=== PATIENT | female | born 1935 | race Caucasian/White ===

== ENCOUNTER → 2016-11-17 | Outpatient (CLI) | payer OTHER, BC ==
[~2016-11-17] MED LIST: ACET-1138 PO; DOXY25TA7 PO; MULT-506 PO; SNK PO; TRAM-10 PO; XRL10 PO
--- NOTE | 2016-11-17 16:05 | MAMMOGRAPHY REPORT ---
BILATERAL DIGITAL SCREENING MAMMOGRAM WITH CAD: 11/17/2016 CLINICAL HISTORY: Routine screening. Patient has no complaints. TECHNIQUE: Bilateral CC and MLO views were obtained. Current study was also evaluated with a Comput er Aided Detection (CAD) system. COMPARISON: Comparison is made to exams dated: 12/06/2014 mammogram, 05/22/2014 mammogram, 04/03/2013 mammogram, 03/31/2012 mammogram, 02/20/2011 mammogram, and 02/14/2010 mammogram - [facility]. BREAST COMPOSITION: The tissue of both breasts is heterogeneously dense, which may obscure small ma sses. FINDINGS: There is a new visualized 4 mm focal asymmetry with associated clustered microcalcificati on in the far posterior upper inner left breast, for which additional spot magnification views and p ossibly ultrasound are recommended. There are other clusters of microcalcifications most numerous i n the lateral right breast and 12:00 left breast, for which additional spot magnification views can be obtained at the time of diagnostic workup in the left breast, to ensure stability. No other suspicious mass, focal area of architectural distortion or developing asymmetry is seen taqueria aterally. IMPRESSION: ACR BI-RADS CATEGORY 0: INCOMPLETE EVALUATION: NEED ADDITIONAL IMAGING EVALUATION The 4 mm focal asymmetry with associated clustered microcalcification in the upper inner posterior l eft breast, and bilateral clusters of microcalcifications need additional imaging evaluation. The patient will be called to schedule an appointment. Approximately 10% of breast cancers are not detected with mammography. A negative mammographic repor t should not delay biopsy if a clinically suggestive mass is present. Pam Truong M.D. ay/:11/17/2016 13:34:22 Outbound Call Center Representative: Malia SOTO(R)(M), [facility] letter sent: Addl Imaging 0 BI-RADS Code: ACR BI-RADS Category 0: Incomplete Evaluation: Need Additional Imaging Evaluation
== END | disposition home or self-care (01) ==
LOC: C.MAMM 09:01
PROVIDERS: ATTEND Family Medicine
DX: Z12.31 Encounter for screening mammogram for malignant neoplasm of breast (principal); N64.89 Other specified disorders of breast; R92.0 Mammographic microcalcification found on diagnostic imaging of breast

== ENCOUNTER → 2016-11-25 | Outpatient (CLI) | payer OTHER, BC ==
--- NOTE | 2016-11-25 16:45 | MAMMOGRAPHY REPORT ---
BILATERAL DIGITAL DIAGNOSTIC MAMMOGRAM AND TARGETED LEFT ULTRASOUND: 11/25/2016 CLINICAL HISTORY: Bilateral Calcifications. TECHNIQUE: Spot magnification bilateral cc and ML views were obtained. COMPARISON: Comparison is made to exams dated: 11/17/2016 mammogram, 12/06/2014 mammogram, 06/06/2014 mammogram, 05/22/2014 mammogram, 04/03/2013 mammogram, and 03/31/2012 mammogram - [facility]. BREAST COMPOSITION: The tissue of both breasts is heterogeneously dense, which may obscure small ma sses. FINDINGS: Spot magnification views of the left breast demonstrate grouped punctate and amorphous ca lcifications within the left upper inner quadrant which are stable on spot magnification views datin g back to the May 2014 exam and are likely stable on spot magnification views dating back to 31 03. More posteriorly in the left upper inner quadrant is a nodular 5 mm focal asymmetry with associ ated internal calcifications which appear increased compared to prior exams. Spot magnification views of the right breast demonstrate multiple groups of similar-appearing puncta te and amorphous calcifications in the right upper outer quadrant. The calcifications are likely st able compared to the May 2014 exam, however, it is difficult to make an accurate comparison bet ween the exams due to differences in mammographic technique (currently using [employer] equipment, prev iously using [employer] equipment). Targeted ultrasound was performed of the left upper inner quadrant in the region of the nodular asym metry with associated calcifications. No clear sonographic correlate for the asymmetry is seen. No suspicious masses were seen on ultrasound. IMPRESSION: ACR BI-RADS CATEGORY 4: SUSPICIOUS, TARGETED ULTRASOUND ACR BI-RADS CATEGORY 4: SUSPICI OUS 1. Small 5 mm nodular asymmetry with associated increasing calcifications in the left upper inner q uadrant posteriorly, without a sonographic correlate evident. The finding is indeterminate and ster eotactic biopsy is recommended for further evaluation. 2. Grouped calcifications in the left upper inner quadrant more anteriorly are stable dating back t o at least the May 2014 exam spot magnification views and are considered benign given long-term stability. 3. Multiple groups of calcifications in the right upper outer quadrant are likely stable compared to the 2013 exam although it is difficult to confirm stability given differences in mammographic techn ique. Pending benign pathology of the left breast finding, recommend follow-up diagnostic mammogram s in 6 months of the right breast to confirm stability on spot magnification views. A phone call was made to the physician's office to confirm faxed results were received. The patient has been verbally notified of the results. She tentatively scheduled the biopsy before leaving the department. Approximately 10% of breast cancers are not detected with mammography. A negative mammographic repor t should not delay biopsy if a clinically suggestive mass is present. Brianne Lemons M.D. ah/:11/25/2016 15:19:51 Recycling Technician: Dayana SOTO(Carmelina)(Jenniffer), [facility] letter sent: Abnormal 4/5 BI-RADS Code: ACR BI-RADS Category 4: Suspicious Ultrasound BI-RADS: ACR BI-RADS Category 4: Suspic ious
== END | disposition home or self-care (01) ==
LOC: C.MAMM 12:44
PROVIDERS: ATTEND Family Medicine
DX: R92.0 Mammographic microcalcification found on diagnostic imaging of breast (principal); N64.89 Other specified disorders of breast

== ENCOUNTER → 2017-02-16 | Outpatient (CLI) | payer OTHER, BC ==
[~2017-02-16] MED LIST changes: -TRAM-10 PO
--- NOTE | 2017-02-16 13:39 | Discharge Instructions ---
Discharge Instructions Procedure Procedure Date: Feb 16, 2017. Reason for visit: Left Calcifications. Discharge Discharge Date: Feb 16, 2017. Discharge Diagnosis: post left breast stereotactic guided biopsy Instructions Activity Recommendations: Additional Limitations (see below) Return to School/Work: no limitations Recommended Home Diet: No Limitations Provider Instructions: ACTIVITY RECOMMENDATIONS: * No lifting, pushing, pulling or exercising the affected side for three days. RETURN TO SCHOOL/WORK: * You may return to work/school after the procedure, but do not perform any strenuous activities for 24 to 48 hours. MEDICATIONS: * Tylenol (two 325 mg) every four to six hours if needed for mild pain (if not allergic to Tylenol). DIET: * Resume previous diet. SPECIAL CARE INSTRUCTIONS: * Keep biopsy site dry for 24 hours. May shower after 24 hours, but do not soak (bathe) incision. * May remove Tegaderm (plastic patch) tomorrow AFTER showering. * Leave the steri-strips on for one week. Allow the steri-strips to fall off by themselves. If not off after one week, you may remove them. You may place a Bandaid crosswise over the strips, if desired. * Apply ice 10 minutes on and 10 minutes off as needed. * Wear a bra at bedtime to sleep more comfortably for 2-3 days. * Your referring physician should have the results after approximately 5 to 7 business days. * Call for unusual bleeding, fever, drainage, etc or if you have any questions call [phone] during normal business hours or after hours call Dr Truong, . FOLLOW UP VISIT: Follow-up with Referring Physician as scheduled. Allergies Coded Allergies: Codeine (Verified Adverse Reaction, Unknown, NAUSEA, 06/27/16) Mel Prado Recommendations: Call your doctor if: * Temperature above 101 degrees * Pain not relieved by pain medicine ordered * There is increased drainage or redness from any incision * You have any unanswered questions or concerns. Your Doctors Instructions noted above were prepared by provider Pam Truong. Patient Signature Section: Patient Instructions Signature Page Iqra Prieto Patient (or Guardian) Signature/Date: I have read and understand the instructions given to me by my caregivers. Caregiver/RN/Doctor Signature/Date: The above-named patient and/or guardian has received patient instructions on this date. + Original Patient Signature Page (only) stays with chart. Please make copy for patient.
--- NOTE | 2017-02-17 07:43 | MAMMOGRAPHY REPORT ---
THIS REPORT HAS BEEN AMENDED. STEREOTACTIC GUIDED BIOPSY LEFT BREAST: 02/16/2017 CLINICAL HISTORY: 5 mm nodular asymmetry with associated clustered microcalcification in the upper in ner far posterior left breast. Patient presents for stereotactic guided biopsy. COMPARISON: Comparison is made to exams dated: 11/25/2016 mammogram, 11/17/2016 mammogram, 12/06/2014 ma mmogram, and 06/06/2014 mammogram - [facility]. PATIENT CONSENT: After explaining the risks, benefits and alternatives of the procedure to the patien t, informed consent was obtained both verbally and in writing. Specific risks include: Bleeding, inf ection, puncture of adjacent structure, pain, nontarget biopsy, sampling error, metal allergy and med ication reaction. PROCEDURE DESCRIPTION: A time-out was performed and the left breast was confirmed as the site of biop sy. The patient was placed prone on the stereotactic biopsy table and the breast was placed in medial lateral compression. A ux researcher image was obtained that demonstrated the clustered microcalcifications and associated 5 mm nodular asymmetry in question. They are amenable to sterotactic biopsy. Then +15 and -15 stereo pair images were obtained. The calcifications were targeted utilizing the coordinat es obtained by the computer. The skin was prepped with Betadine. 1% Lidocaine with and without epini pherine was administered as local anesthesia. A small skin incision was made. Through the incision, the needle was inserted to the depth determined by the computer. 7 samples were obtained using a [employer] 9-gauge vacuum-assisted biopsy device. The specimen radiograph demonstrated several represent ative microcalcifications within multiple samples, therefore, a metallic marker was placed at the bio psy site. There was no immediate complication. Hemostasis was achieved after several minutes of manua l compression. The samples were sent to pathology in an appropriately labeled container. Postprocedure CC and ML views of the left breast were obtained. There is a new dumbbell-shaped metal lic biopsy marker and no significant hematoma in the upper inner posterior left breast, at the site o f the biopsied 5 mm nodular asymmetry with associated clustered microcalcification. Pending benign pathology results, follow-up diagnostic mammograms and repeat spot magnification views of the left breast are recommended in 6 months. COMPARISON: Comparison is made to exams dated: 11/25/2016 mammogram, 11/17/2016 mammogram, 12/06/2014 ma mmogram, and 06/06/2014 mammogram - [facility]. A stereotactic guided biopsy was performed for the abnormality located in the left breast at 10 o'batool ck posterior depth. The skin was prepped in the usual manner. A biopsy needle was placed adjacent t o the abnormality under computer guidance and confirmatory stereotactic mammography images were obtai floyd to document needle placement. Once the needle was documented to be in the correct location, a sp ecimen was obtained using an automated biopsy gun. The specimen was sent to the laboratory for patho logical analysis. IMPRESSION: STEREOTACTIC GUIDED BIOPSY Status post left breast stereotactic guided biopsy of a 5 mm nodular asymmetry with associated cluste red microcalcification in the upper inner posterior left breast, with biopsy marker placed at the sit e. Pending benign pathology results, follow-up left diagnostic mammograms and repeat spot magnification views are recommended in 6 months, to ensure stability of other clustered and grouped microcalcificat ions present in the left breast. The patient will receive notification of the biopsy results from her referring physician. Pam Truong M.D. ay/:02/16/2017 14:01:42 Roll Bucker: Yeny MELENDREZ)(M), [facility] AMENDMENT: 02/24/2017 Pam Truong M.D. 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 Pathology results are concordant with the imaging appearance. A six-tripp h follow-up left diagnostic mammogram including spot magnification views is recommended to ensure sta bility of other clustered calcifications.
--- NOTE | 2017-02-17 08:52 | MAMMOGRAPHY REPORT ---
UNILATERAL LEFT DIGITAL DIAGNOSTIC MAMMOGRAM: 02/16/2017 CLINICAL HISTORY: Status post left breast stereotactic guided biopsy of a cluster of microcalcificati ons in the upper inner posterior breast. Please refer to the report from left breast stereotactic biopsy performed at the same time for full d etail. IMPRESSION: POST PROCEDURE IMAGING FOR MARKER PLACEMENT Please refer to the report from left breast stereotactic biopsy performed at the same time for full d etail. Approximately 10% of breast cancers are not detected with mammography. A negative mammographic report should not delay biopsy if a clinically suggestive mass is present. Pam Truong M.D. ay/:02/16/2017 13:40:33 Conference Interpreter: Yeny SOTO(Carmelina)(M), [facility] BI-RADS Code: Post Procedure Imaging For Marker Placement
== END | disposition home or self-care (01) ==
LOC: C.MAMM 12:47
PROVIDERS: ATTEND Family Medicine
DX: R92.0 Mammographic microcalcification found on diagnostic imaging of breast (principal); D24.2 Benign neoplasm of left breast

== ENCOUNTER → 2017-10-14 | Outpatient (CLI) | payer OTHER, BC ==
[~2017-10-14] MED LIST changes: -DOXY25TA7 PO; +DOXY25TA8 PO
--- NOTE | 2017-10-14 14:44 | MAMMOGRAPHY REPORT ---
BILATERAL DIGITAL DIAGNOSTIC MAMMOGRAM TOMOSYNTHESIS WITH CAD: 10/14/2017 CLINICAL HISTORY: History of stereotactic biopsy of left breast calcifications February 2017 which yiel ded a benign sclerotic fibroadenoma. The patient presents for short interval follow-up of other bila teral breast calcifications. TECHNIQUE: Breast tomosynthesis in addition to standard 2D mammography was performed. Current study was also evaluated with a Computer Aided Detection (CAD) system. Bilateral CC and MLO 2D and tomosyn thesis images and spot magnification bilateral CC and ML views were obtained. COMPARISON: Comparison is made to exams dated: 02/16/2017 stereotactic biopsy, 02/16/2017 mammogram, 11/09 ultrasound, 11/25/2016 mammogram, 11/17/2016 mammogram, and 12/06/2014 mammogram - [facility]. BREAST COMPOSITION: The tissue of both breasts is heterogeneously dense, which may obscure small mas ses. FINDINGS: Spot magnification views of the left breast again demonstrate grouped punctate and amorphou s calcifications within the left upper inner quadrant which are stable on spot magnification views da ting back to at least the 2013 exam and are considered benign given long-term stability. A biopsy cl ip is seen within the left upper inner quadrant posteriorly from prior benign stereotactic biopsy. Spot magnification views of the right breast again demonstrate numerous groups of similar appearing p unctate and amorphous calcifications throughout the right upper outer quadrant. The calcifications a re stable on spot magnification views dated November 2016. Additionally, the calcifications appear simila r to the biopsied calcifications in the left breast which yielded a benign fibroadenoma. The calcifi cations are probably benign and likely represent degenerating fibroadenomas. The remainder of both breasts are stable compared to prior exams, without suspicious masses, calcific ations, or areas of architectural distortion noted. Bilateral asymmetries are stable. Oval circumsc ribed 3.1 cm benign-appearing mass in the left lower inner quadrant is also stable. IMPRESSION: ACR-BI-RADS CATEGORY 3: PROBABLY BENIGN 1. Grouped punctate and amorphous calcifications in the left upper inner quadrant are stable dating back to the May 2014 exam and are considered benign given long-term stability. 2. Multiple groups of punctate and amorphous calcifications in the right upper outer quadrant are st able dating back to at least the November 2016 exam, and appear similar to the recently biopsied calcifica tions within the left breast which yielded benign pathology. 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 Recommend bilateral diagnostic tomosynthesis mammog brianne in 12 months, to reevaluate the right breast calcifications and for routine mammography of the l eft breast. The patient has been verbally notified of the results. Approximately 10% of breast cancers are not detected with mammography. A negative mammographic report should not delay biopsy if a clinically suggestive mass is present. Brianne Lemons M.D. ah/:10/14/2017 11:12:28 Glue Specialty Supervisor: Dayana MELENDREZ)(Jenniffer), [facility] letter sent: Follow Up Recommended 3 BI-RADS Code: ACR-BI-RADS Category 3: Probably Benign
== END | disposition home or self-care (01) ==
LOC: C.MAMM 10:23
PROVIDERS: ATTEND Family Medicine
DX: R92.0 Mammographic microcalcification found on diagnostic imaging of breast (principal)

== ENCOUNTER 2019-07-06 16:24 | Inpatient (IN) ==
[2019-07-06 17:20] LABS: Basophils # (auto) 0.11 K/uL (0-0.2); Basophils % (auto) 1.2 %; Eosinophils # (auto) 1.23 K/uL (0-0.5); Eosinophils % (auto) 13.4 %; Hematocrit (blood only) 41.2 % (37-47); Hemoglobin 13.9 g/dL (12.0-16.0); Immature Granulocytes # (auto) 0.02 K/uL (0.00-0.02); Immature Granulocytes % (auto) 0.2 %; Lymphocytes # (auto) 2.92 K/uL (1.2-3.4); Lymphocytes % (auto) 31.8 %; Mean Corpuscular Hemoglobin 32.6 pg (25-34); Mean Corpuscular Hgb Conc 33.7 g/dL (32-36); Mean Corpuscular Volume 96.7 fL (80-100); Mean Platelet Volume 8.6 fL (7.4-10.4); Monocytes # (auto) 0.75 K/uL (0.11-0.59); Monocytes % (auto) 8.2 %; Neutrophils # (auto) 4.14 K/uL (1.4-6.5); Neutrophils % (auto) 45.2 %; Platelet Count 360 K/uL (130-400); RDW Coefficient of Variation 13.1 % (11.5-14.5); RDW Standard Deviation 45.9 fL (36.4-46.3); Red Blood Count 4.26 M/uL (4.2-5.4); White Blood Count 9.17 K/uL (4.8-10.8)
--- NOTE | 2019-07-06 17:34 | XRay Report ---
SINGLE VIEW CHEST CLINICAL HISTORY: Dyspnea. FINDINGS: An AP, portable, upright chest radiograph is compared to study dated 06/27/2016. The cardio mediastinal silhouette is unremarkable. There is mild bibasilar scarring/atelectasis. The lungs and p leural spaces are otherwise clear. No pneumothorax is seen. The skeletal structures are osteopenic. T he bony thorax is grossly intact. IMPRESSION: No active disease in the chest. ACT 112: Negative or not required by law. Electronically signed by: Michel Cohen M.D. 07/06/2019 5:33 PM
[2019-07-06 17:38] LABS: Partial Thromboplastin Time 25.9 Seconds (21.0-31.0)
[2019-07-06 17:43] LABS: Alanine Aminotransferase 21 U/L (12-78); Albumin Level 3.6 gm/dl (3.4-5.0); Aspartate Aminotransferase 14 U/L (15-37); BUN Creatinine Ratio 14.6 (10-20); Blood Urea Nitrogen 11 mg/dl (7-18); Calcium 8.6 mg/dl (8.5-10.1); Carbon Dioxide 26 mmol/L (21-32); Chloride 105 mmol/L (98-107); Creatinine Clr Calc Pharmacy 50.6 ml/min; Est GFR (African American) 87.4; Est GFR (Non-African American) 75.4; Glucose 92 mg/dl (70-99); Potassium 3.9 mmol/L (3.5-5.1); Sodium 136 mmol/L (136-145)
[2019-07-06] MEDS ORDERED: methylPREDNISolone 125 MG/2 ML VIAL IV STA (17:46)
[2019-07-06] MEDS ORDERED: ALBUT/IPRATROP 3MG/0.5MG NEB 3 ML VIAL NEB STA ×2 (17:46→18:34)
[2019-07-06 17:47] LABS: Alkaline Phosphatase 86 U/L (45-117); Bilirubin,Total 0.3 mg/dl (0.2-1); Globulin 3.5 gm/dl (2.5-4.0); Total Protein 7.1 gm/dl (6.4-8.2); Troponin I < 0.015 ng/ml (0-0.045)
--- NOTE | 2019-07-06 21:13 | Emergency Department Note ---
Entered by Percy Rivera acting as a scribe for Quintin Acosta MD ED Provider Note CHIEF COMPLAINT: shortness of breath HISTORY OF PRESENT ILLNESS: The patient is a 84 year old F who presents to the Emergency Room with complaints of worsening shortness of breath that started 1 month ago. The patient states that 1 month ago, when her shortness of breath first started, she went to see her PCP, Dr. Ryann Banuelos. She notes that her PCP did a chest CT and prescribed her an inhaler, z-pack, and steroids. She adds that she has been taking all of her medications except for her steroid medication. She notes that her is a former ER doctor and did not want her to take her steroid medications. She states that she is currently experiencing coughing, congestion, and dyspnea. She adds that her coughing is producing a yellow mucous. She notes that she also has back pain, but she adds that it is due to working around her house. She denies being on oxygen at home. She states that she is a former smoker. She adds that she has a history of a broken hip, 3 years ago. She denies any recent long travel or being around anyone sick. She also denies a history of asthma and COPD. Pt denies LOC, headache, fevers, chills, diaphoresis, visual changes, neck pain, chest pain, nausea, vomiting, leg swelling, abdominal pain, melena, hematochezia, urinary symptoms, numbness, weakness, lymphadenopathy, rash, or other complaints. REVIEW OF SYSTEMS: See HPI for pertinent positives and negatives. A total of ten systems were reviewed and were otherwise negative. PMHx/PSHx: Dyslipidemia, osteoporosis, esophageal reflux SOCIAL HISTORY: Patient lives at home. . PHYSICAL EXAM: GENERAL: Awake, alert, well-appearing, in no distress HENT: Normocephalic, atraumatic. Oropharynx unremarkable. EYES: PERRL. Normal conjunctiva. Sclera non-icteric. NECK: Inspection normal. Non-tender. Supple. No nuchal rigidity. FROM. No masses. RESPIRATORY: Coarse breath sounds. Wheezing. No rales. Normal respiratory effort. CARDIAC: Normal rate. Normal rhythm. No murmurs. No rubs. Extremities warm and well perfused. Pulses equal. No JVD. GI: Soft, non-distended. No tenderness to palpation. No rebound or guarding. No masses. RECTAL: Deferred. MUSCULOSKELETAL: Atraumatic. Chest examination reveals no tenderness. The back is symmetrical on inspection without obvious abnormality. There is no CVA te nderness to palpation. No joint edema. LOWER EXTREMITIES: Calves are equal size bilaterally and non-tender. No edema. No discoloration. NEURO: Normal sensorium. No sensory or motor deficits noted. SKIN: No rash or jaundice noted. EMERGENCY DEPARTMENT COURSE: 1737: The patient was evaluated in room A12B, and a complete history and phy sical examination were performed. 2035: I reviewed the patient's case with Dr. Tovar, [facility] Hospitalist. He will evaluate the patient for further management. MEDICAL DECISION MAKING: Triage Nursing notes reviewed and agree them. Additional history obtained from the family. The patient's history was concerning for shortness of breath. Differential diagnosis: Etiologies such as pneumonia, COPD, reactive airway disease, CHF, cardiac ischemia, pulmonary embolism, pneumothorax, musculoskeletal, infections, gastrointestinal, as well as others were entertained. Physical examination: As above. The patient was wheezing. ER treatment provided: DuoNeb x2 Solu-Medrol Supplemental oxygen On reassessment the patient felt better. Diagnostic interpretation by me: The electrocardiogram was negative for pathologic change. The labs revealed an unremarkable CBC and chemistry panel Imaging studies: Chest x-ray negative for acute process. The patient has reactive airways and is wheezing. She has hypoxia from this. She needs further management in the hospital. Consultation: A consultation was placed with the hospitalist. The case was discussed and diagnostics were reviewed. The patient was evaluated in the ER for further treatment. IMPRESSION: hypoxia, wheezing, non-productive cough PLAN: Admitted as inpatient. The scribe's documentation has been prepared under my direction and personally reviewed by me in its entirety. I confirm that the note above accurately reflects all work, treatment, procedures, and medical decision making performed by me. Impression & Plan Hypoxia, Wheezing, Non-productive cough Past Med/Surg History Medical History (Updated 07/06/19 @ 21:07 by Percy Rivera) Dyslipidemia H/O esophageal reflux Osteoporosis Social History Preferred Language: [employer] Required: No Beliefs That Will Affect Care: None Current Living Situation: Spouse Other Information That Helps Us Care for You: No Feels Safe at Home: No Is there a partner from a previous relationship who is making you feel unsafe now?: No Any Concerns about Your Family Situation: No Would You Like to Speak to Someone About Your Situation: No Safety Concerns: Feels Safe At This Time Smoking Status: Former smoker Tobacco Type: cigarettes ; Do You Dip or Chew Tobacco: No ; Second Hand Exposure: No ; Tobacco Cessation Education Requested by Patient: No Hx Alcohol Use: Yes Alcohol type: wine Hx Substance Use: No Results & Data Vital Signs Vital Signs - 24 hr 07/06/19 16:24 07/06/19 16:52 07/06/19 17:09 Temperature 36.6 C Temperature Source Oral Pulse Rate 80 61 Pulse Rate [Apical] Pulse Rhythm [Apical] Pulse Strength [Apical] Respiratory Rate 20 Respiratory Effort / Characteristics Non-Labored Spontaneous Non-Labored Spontaneous Respiratory Depth Normal Normal Respiratory Pattern Regular Regular Blood Pressure 113/65 Blood Pressure [Right Arm] Blood Pressure Mean 81 Blood Pressure Mean [Right Arm] Blood Pressure Position [Right Arm] Pulse Oximetry 86 L 85 L 93 Oxygen Delivery Method Room Air Room Air Nasal Cannula Oxygen Flow Rate 2 2 Sepsis Recent Fever Within 48 Hours No Sepsis Action Taken by Nursing No Action Required Oxygen Flow Rate - Titration 2 Pulse Oximetry Post Tiitration 92 07/06/19 18:12 07/06/19 18:24 07/06/19 18:50 Temperature Temperature Source Pulse Rate Pulse Rate [Apical] 64 68 69 Pulse Rhythm [Apical] Regular Pulse Strength [Apical] Normal Respiratory Rate 16 24 20 Respiratory Effort / Characteristics Non-Labored Spontaneous Non-Labored Spontaneous Spontaneous Respiratory Depth Normal Respiratory Pattern Blood Pressure Blood Pressure [Right Arm] 128/58 L Blood Pressure Mean Blood Pressure Mean [Right Arm] 81 Blood Pressure Position [Right Arm] Sitting Pulse Oximetry 93 93 93 Oxygen Delivery Method Nasal Cannula Nasal Cannula Nasal Cannula Oxygen Flow Rate 2 2 2 Sepsis Recent Fever Within 48 Hours Sepsis Action Taken by Nursing Oxygen Flow Rate - Titration Pulse Oximetry Post Tiitration 07/06/19 19:21 Temperature Temperature Source Pulse Rate Pulse Rate [Apical] 70 Pulse Rhythm [Apical] Pulse Strength [Apical] Respiratory Rate Respiratory Effort / Characteristics Respiratory Depth Respiratory Pattern Blood Pressure Blood Pressure [Right Arm] 128/58 L Blood Pressure Mean Blood Pressure Mean [Right Arm] 81 Blood Pressure Position [Right Arm] Pulse Oximetry 92 Oxygen Delivery Method Nasal Cannula Oxygen Flow Rate Sepsis Recent Fever Within 48 Hours Sepsis Action Taken by Nursing Oxygen Flow Rate - Titration Pulse Oximetry Post Tiitration Home Medications Current Medication List: was personally reviewed by me Laboratory Data Attestation: I reviewed the patient's lab results. Result diagrams: 07/07/19 05:30 07/07/19 05:30 Lab Results 07/06/19 07/06/19 07/06/19 Range/Units 17:10 17:10 17:10 WBC 9.17 (4.8-10.8) K/uL RBC 4.26 (4.2-5.4) M/uL Hgb 13.9 (12.0-16.0) g/dL Hct 41.2 (37-47) % MCV 96.7 (80-100) fL MCH 32.6 (25-34) pg MCHC 33.7 (32-36) g/dL RDW Std Deviation 45.9 (36.4-46.3) fL RDW Coeff of Yo 13.1 (11.5-14.5) % Plt Count 360 (130-400) K/uL MPV 8.6 (7.4-10.4) fL Immature Gran % (Auto) 0.2 % Neut % (Auto) 45.2 % Lymph % (Auto) 31.8 % [place] % (Auto) 8.2 % Eos % (Auto) 13.4 % Baso % (Auto) 1.2 % Immature Gran # (Auto) 0.02 (0.00-0.02) K/uL Neut # (Auto) 4.14 (1.4-6.5) K/uL Lymph # (Auto) 2.92 (1.2-3.4) K/uL [place] # (Auto) 0.75 H (0.11-0.59) K/uL Eos # (Auto) 1.23 H (0-0.5) K/uL Baso # (Auto) 0.11 (0-0.2) K/uL PT 10.0 (9.0-12.0) Seconds INR 1.0 (0.9-1.1) APTT 25.9 (21.0-31.0) Seconds PTT Ratio 1.0 Sodium 136 (136-145) mmol/L Potassium 3.9 (3.5-5.1) mmol/L Chloride 105 (98-107) mmol/L Carbon Dioxide 26 (21-32) mmol/L Anion Gap 5.0 (3-11) BUN 11 (7-18) mg/dl Creatinine 0.74 (0.6-1.2) mg/dl Est Cr Clr Drug Dosing 50.6 ml/min Est GFR ( Amer) 87.4 Est GFR (Non-Af Amer) 75.4 BUN/Creatinine Ratio 14.6 (10-20) Glucose 92 (70-99) mg/dl Calcium 8.6 (8.5-10.1) mg/dl Total Bilirubin 0.3 (0.2-1) mg/dl AST 14 L (15-37) U/L ALT 21 (12-78) U/L Alkaline Phosphatase 86 (45-117) U/L Troponin I < 0.015 (0-0.045) ng/ml NT-Pro-B Natriuret Pep (0-1800) pg/ml Total Protein 7.1 (6.4-8.2) gm/dl Albumin 3.6 (3.4-5.0) gm/dl Globulin 3.5 (2.5-4.0) gm/dl Albumin/Globulin Ratio 1.0 (0.9-2) 07/06/19 Range/Units 17:10 WBC (4.8-10.8) K/uL RBC (4.2-5.4) M/uL Hgb (12.0-16.0) g/dL Hct (37-47) % MCV (80-100) fL MCH (25-34) pg MCHC (32-36) g/dL RDW Std Deviation (36.4-46.3) fL RDW Coeff of Yo (11.5-14.5) % Plt Count (130-400) K/uL MPV (7.4-10.4) fL Immature Gran % (Auto) % Neut % (Auto) % Lymph % (Auto) % [place] % (Auto) % Eos % (Auto) % Baso % (Auto) % Immature Gran # (Auto) (0.00-0.02) K/uL Neut # (Auto) (1.4-6.5) K/uL Lymph # (Auto) (1.2-3.4) K/uL [place] # (Auto) (0.11-0.59) K/uL Eos # (Auto) (0-0.5) K/uL Baso # (Auto) (0-0.2) K/uL PT (9.0-12.0) Seconds INR (0.9-1.1) APTT (21.0-31.0) Seconds PTT Ratio Sodium (136-145) mmol/L Potassium (3.5-5.1) mmol/L Chloride (98-107) mmol/L Carbon Dioxide (21-32) mmol/L Anion Gap (3-11) BUN (7-18) mg/dl Creatinine (0.6-1.2) mg/dl Est Cr Clr Drug Dosing ml/min Est GFR ( Amer) Est GFR (Non-Af Amer) BUN/Creatinine Ratio (10-20) Glucose (70-99) mg/dl Calcium (8.5-10.1) mg/dl Total Bilirubin (0.2-1) mg/dl AST (15-37) U/L ALT (12-78) U/L Alkaline Phosphatase (45-117) U/L Troponin I (0-0.045) ng/ml NT-Pro-B Natriuret Pep 97 (0-1800) pg/ml Total Protein (6.4-8.2) gm/dl Albumin (3.4-5.0) gm/dl Globulin (2.5-4.0) gm/dl Albumin/Globulin Ratio (0.9-2) Administered Medications Diphenhydramine HCl (Benadryl Capsule) 25 mg PO HS PRN PRN Reason: Insomnia Stop: 08/05/19 21:36 Last Admin: 07/07/19 00:04 Dose: 25 mg Documented by: [id number] Heparin Sodium (Porcine) (Heparin Sodium (Porcine)) 5,000 units SQ Q12 DERRICK Stop: 08/05/19 21:14 Last Admin: 07/07/19 08:59 Dose: Not Given Documented by: [id number] Admin: 07/06/19 22:03 Dose: Not Given Documented by: [id number] Doxycycline Hyclate 100 mg/ (Dextrose) 110 mls @ 50 mls/hr IV Q12H DERRICK Stop: 07/14/19 10:29 Last Admin: 07/07/19 10:37 Dose: 50 mls/hr Documented by: [id number] Ipratropium Banco (Atrovent 0.02% 0.5mg/2.5ml) 0.5 mg INH Q6R [facility] Stop: 08/06/19 00:59 Last Admin: 07/07/19 09:42 Dose: 0.5 mg Documented by: [id number] Admin: 07/07/19 06:57 Dose: 0.5 mg Documented by: [id number] Admin: 07/07/19 01:35 Dose: Not Given Documented by: [id number] Levalbuterol HCl (Xopenex 1.25mg/0.5ml Neb) 1.25 mg INH Q2H PRN PRN Reason: Shortness Of Breath Or Wheezing Stop: 08/05/19 21:14 Last Admin: 07/07/19 09:42 Dose: 1.25 mg Documented by: [id number] Levalbuterol HCl (Xopenex 0.63 Mg/3 Ml Neb) 0.63 mg NEB Q6R [facility] Stop: 08/06/19 00:59 Last Admin: 07/07/19 06:57 Dose: 0.63 mg Documented by: [id number] Admin: 07/07/19 01:35 Dose: Not Given Documented by: [id number] Levothyroxine Sodium (Synthroid) 25 mcg PO DAILYBB [facility] Stop: 08/06/19 06:29 Last Admin: 07/07/19 06:07 Dose: 25 mcg Documented by: [id number] Multivitamins (Multivitamin Tab) 1 tab PO [facility] Stop: 08/06/19 08:59 Last Admin: 07/07/19 09:38 Dose: Not Given Documented by: [id number] Prednisone (Prednisone) 40 mg PO DAILY [facility] Stop: 08/06/19 08:59 Last Admin: 07/07/19 09:40 Dose: Not Given Documented by: [id number] Vitamin D (Vitamin D3) [facility] Stop: 08/06/19 08:59 Last Admin: 07/07/19 08:58 Dose: 2,000 units Documented by: [id number] Discontinued Medications Albuterol (Duoneb) 3 ml NEB NOW STA Stop: 07/06/19 17:47 Last Admin: 07/06/19 18:11 Dose: 3 ml Documented by: [id number] Albuterol (Duoneb) 3 ml NEB NOW STA Stop: 07/06/19 18:35 Last Admin: 07/06/19 18:49 Dose: 3 ml Documented by: [id number] Doxycycline Hyclate (Vibramycin) 100 mg PO BID DERRICK Stop: 07/13/19 21:14 Last Admin: 07/06/19 22:01 Dose: 100 mg Documented by: [id number] Guaifenesin (Robitussin Sugar Free Syrup) 100 mg PO NOW STA Stop: 07/07/19 08:53 Last Admin: 07/07/19 09:05 Dose: 100 mg Documented by: [id number] Methylprednisolone 40 mg/ (Syringe) 0.64 mls @ 1.5 mls/min IV Q8H DERRICK Stop: 08/06/19 00:00 Last Admin: 07/07/19 00:04 Dose: 1.5 mls/min Documented by: [id number] Methylprednisolone 20 mg/ (Syringe) 0.32 mls @ 1.5 mls/min IV 0945 ONE Stop: 07/07/19 09:46 Last Admin: 07/07/19 10:20 Dose: 1.5 mls/min Documented by: [id number] Levalbuterol HCl (Xopenex 1.25mg/3ml Neb) 1.25 mg NEB NOW STA Stop: 07/07/19 09:30 Last Admin: 07/07/19 10:37 Dose: 1.25 mg Documented by: [id number] Lidocaine HCl (Xylocaine 4% Inh Soln) 3 ml INH NOW ONE Stop: 07/07/19 09:49 Last Admin: 07/07/19 10:03 Dose: 3 ml Documented by: [id number] Methylprednisolone (Solumedrol) 125 mg IV NOW STA Stop: 07/06/19 17:47 Last Admin: 07/06/19 18:26 Dose: 125 mg Documented by: [id number] Imaging Data Radiologist's Impression: Radiology results as stated below per my review and the radiologist's interpretation: SINGLE VIEW CHEST CLINICAL HISTORY: Dyspnea. FINDINGS: An AP, portable, upright chest radiograph is compared to study dated 06/27/2016. The cardiomediastinal silhouette is unremarkable. There is mild bibasilar scarring/atelectasis. The lungs and pleural spaces are otherwise clear. No pneumothorax is seen. The skeletal structures are osteopenic. The bony thorax is grossly intact. IMPRESSION: No active disease in the chest. ACT 112: Negative or not required by law. Electronically signed by: Michel Cohen M.D. 07/06/2019 5:33 PM ECG Data Attestation: I personally reviewed and interpreted this ECG as follows: Indication: + SOB/dyspnea Rate (beats per minute): 60 Rhythm: normal sinus ECG Intervals/blocks: + Normal QRS ECG [place]: + Normal ECG ST segments: no ST depression and no ST elevation ECG Findings: no PACs and no PVCs Blood Pressure Blood Pressure Findings: Low blood pressure Blood Pressure Disposition: further management by hospitalist Discharge Plan Visit Data *Final* Discharge Date/Time: 07/06/19 21:12 Chief Complaint: Shortness of Breath/Dyspnea Stated Complaint: SOB,WHEEZING,PNEUMONIA? ED Provider: Quintin Acosta Discharge Problem: Hypoxia, Wheezing, Non-productive cough Patient Disposition: Admitted As Inpatient Discharge Instructions Interventions: ED Discharge Assessment Last Done: 07/06/19 21:12 The scribe's documentation has been prepared under my direction and personally reviewed by me in its entirety. I confirm that the note above accurately reflects all work, treatment, procedures, and medical decision making performed by me.
[2019-07-06] MEDS ORDERED: POLYETHYLENE (MIRALAX) 17 GM PACK PO PRN (21:15)
[2019-07-06] MEDS ORDERED: ONDANSETRON INJ 2 MG/ML 2 ML VIAL IV PRN (21:15)
[2019-07-06] MEDS ORDERED: LEVALBUTEROL HCL 0.63 MG/3 ML NEB NEB PRN ×2 (21:15→21:23)
[2019-07-06] MEDS ORDERED: NITROGLYCERIN SL 0.4 MG/TAB TAB SL PRN (21:15)
[2019-07-06] MEDS ORDERED: XOPENEX/ATROVENT 1.25mg/0.5MG NEB COMBO NEB PRN (21:15)
[2019-07-06] MEDS ORDERED: ASPIRIN 325 MG ECTAB PO PRN (21:15)
[2019-07-06] MEDS ORDERED: ACETAMINOPHEN 325 MG TAB PO PRN (21:15)
[2019-07-06] MEDS: DOXYCYCLINE HYCLATE 100 MG CAP PO SCH (22:01)
[2019-07-06] MEDS: HEPARIN SOD 5,000 UNIT/0.5 ML VIAL SQ SCH (22:03)
--- NOTE | 2019-07-06 23:35 | History and Physical Report ---
DATE OF ADMISSION: 07/06/2019 CHIEF COMPLAINT: Cough and shortness of breath. HISTORY OF PRESENT ILLNESS: This is an 84-year-old female with past medical history significant for hyperlipidemia, hypothyroidism, osteoporosis, generalized osteoarthritis, GERD, who presents with cough and shortness of breath going on since . She saw her family doctor on 06/16/2019 and gave her Z-VIOLETA and inhaler and steroid, but she did not take the steroid, but she took the Z-VIOLETA, but the symptoms did not improve. She is getting progressively short of breath and lot of cough bringing up light yellow-colored phlegm, but denies any fever. Mild chest discomfort from the cough and mild discomfort in her throat because of cough. The patient, when she came into the ER, she was saturating 85% to 86% on room air. On nasal cannula, she was saturating 92%. Currently, she is feeling better. She received steroids and nebs in the ER. Denies any chest pain. No headache, no dizziness, no blurred visions, no earache, no runny nose. No nausea, no vomiting, no abdominal pain. Appetite is not that great. No dysphagia or odynophagia. No diarrhea, no constipation, no blood in the stool or black stools. No hematuria or burning micturition. No swelling in the legs, no rash. Lives with her . Ambulates without any support. ALLERGIES: CODEINE. PAST MEDICAL HISTORY: As mentioned above. PAST SURGICAL HISTORY: Total hip replacement, colonoscopy, right knee meniscal repair, cataract surgery, partial hysterectomy. MEDICATIONS: The patient is on albuterol 2 puffs 4 times a day, levothyroxine 25 mcg daily, vitamin D 2000 units daily, unisom 25 mg p.o. at bedtime p.r.n., aspirin 325 mg p.r.n. pain, multivitamins daily. FAMILY HISTORY: No family history on file. SOCIAL HISTORY: , lives with her . Quit smoking in 1981, but before that only was a social smoker. Alcohol rarely. No drug use. REVIEW OF SYSTEMS: As per HPI. Rest of the review of systems negative. PHYSICAL EXAMINATION: GENERAL: The patient is alert and oriented, not in acute distress. VITAL SIGNS: Temperature 36.6, pulse 70, respiratory rate 20, blood pressure 128/50, oxygen 85% on room air, 92% on nasal cannula. HEENT: No pallor, no icterus. Pupils equal, round, reactive to light. NECK: No JVD, no neck masses, no carotid bruits. CARDIOVASCULAR: S1, S2 heard, regular rate and rhythm, no murmur, no gallop. RESPIRATORY SYSTEM: Normal AP diameter. No accessory muscle use. Bilateral rhonchi and wheezing heard. ABDOMEN: Soft, bowel sounds present, nontender. No distention. CENTRAL NERVOUS SYSTEM: Cranial nerves II-XII grossly nonfocal. EXTREMITIES: No edema, no erythema. LABORATORY DATA: WBC 9.1, hemoglobin 13.9, hematocrit 41.2, platelets 360. PT 10, INR 1, APTT 25.9. Sodium 136, potassium 3.9, chloride 105, bicarbonate 26, BUN 11, creatinine 0.7, serum glucose 92, total calcium 8.6, total bilirubin 0.3, AST of 14, ALT 21, alkaline phosphatase 86, troponin I less than 0.015. IMAGING: Chest x-ray, no acute findings seen. EKG: Normal sinus rhythm with a rate of 60, no significant change found. ASSESSMENT AND PLAN: 1. This is an 84-year-old female who presents with cough and shortness of breath going on since about a month now. Failed outpatient treatment with Z-VIOLETA and inhalers. Wheezing on exam. Chest x-ray, no pneumonia. We will treat her as acute bronchitis. We placed her on IV Solu-Medrol 40 t.i.d., nebs around the clock, and p.r.n. p.o. doxycycline. Follow the sputum cultures. Monitor in the med/surg tele. 2. History of hypothyroidism. Continue Synthroid. 3. Osteoarthritis. Pain medications p.r.n. 4. Deep venous thrombosis prophylaxis, heparin subcutaneously. 5. Disposition: Monitor in the med/surg tele. Level 1 full code. MTDD
[2019-07-07] MEDS ORDERED: methylPREDNISolone 40 MG in SYRINGE 0 ML IV SCH
[2019-07-07] MEDS ORDERED: XOPENEX/ATROVENT 0.63mg/0.5MG NEB COMBO NEB SCH (01:00)
[2019-07-07] MEDS: IPRATROPIUM BROMIDE NEB SOLN 0.02% 2.5 ML VIAL INH SCH ×5 (01:35→18:05)
[2019-07-07] MEDS: LEVALBUTEROL HCL 0.63 MG/3 ML NEB NEB SCH ×4 (01:35→18:05)
[2019-07-07 05:51] LABS: Basophils # (auto) 0.01 K/uL (0-0.2); Basophils % (auto) 0.1 %; Hematocrit (blood only) 39.5 % (37-47); Hemoglobin 13.5 g/dL (12.0-16.0); Immature Granulocytes # (auto) 0.01 K/uL (0.00-0.02); Immature Granulocytes % (auto) 0.1 %; Lymphocytes # (auto) 0.97 K/uL (1.2-3.4); Lymphocytes % (auto) 12.3 %; Mean Corpuscular Hemoglobin 32.5 pg (25-34); Mean Corpuscular Hgb Conc 34.2 g/dL (32-36); Mean Corpuscular Volume 95.2 fL (80-100); Mean Platelet Volume 9.2 fL (7.4-10.4); Monocytes # (auto) 0.04 K/uL (0.11-0.59); Monocytes % (auto) 0.5 %; Neutrophils # (auto) 6.84 K/uL (1.4-6.5); Platelet Count 328 K/uL (130-400); RDW Coefficient of Variation 13.2 % (11.5-14.5); RDW Standard Deviation 45.9 fL (36.4-46.3); Red Blood Count 4.15 M/uL (4.2-5.4); White Blood Count 7.87 K/uL (4.8-10.8)
[2019-07-07] MEDS: LEVOTHYROXINE SODIUM 25 MCG TABLET PO SCH (06:07)
[2019-07-07 06:26] LABS: BUN Creatinine Ratio 13.5 (10-20); Calcium 8.7 mg/dl (8.5-10.1); Creatinine Clr Calc Pharmacy 48.6 ml/min; Est GFR (African American) 83.3; Est GFR (Non-African American) 71.9; Magnesium 2.1 mg/dl (1.8-2.4); Potassium 4.1 mmol/L (3.5-5.1)
[2019-07-07] MEDS ORDERED: COUGH DROP (SUGAR FREE) LOZ 24 LOZ/1 BOX BUCCAL PRN (08:34)
[2019-07-07] MEDS ORDERED: guaiFENesin SUGAR FREE 100 MG/5 ML UDC PO PRN (08:52)
[2019-07-07] MEDS ORDERED: guaiFENesin SUGAR FREE 100 MG/5 ML UDC PO STA (08:52)
[2019-07-07] MEDS: predniSONE 20 MG TAB PO SCH ×2 (08:58→09:40)
[2019-07-07] MEDS: MULTIVITAMIN TAB PO SCH ×2 (08:58→09:38)
[2019-07-07] MEDS: CHOLECALCIFEROL 1,000 UNITS TAB PO SCH (08:58)
[2019-07-07] MEDS: HEPARIN SOD 5,000 UNIT/0.5 ML VIAL SQ SCH (08:59)
[2019-07-07] MEDS: DOXYCYCLINE HYCLATE 100 MG CAP PO SCH ×2 (09:01→13:23)
[2019-07-07] MEDS ORDERED: LEVALBUTEROL HCL 1.25 MG/3 ML NEB NEB STA (09:29)
[2019-07-07] MEDS: LEVALBUTEROL 1.25MG/0.5ML NEB INH PRN ×2 (09:42→21:34)
[2019-07-07] MEDS ORDERED: methylPREDNISolone 20 MG in SYRINGE 0 ML IV ONE (09:45)
[2019-07-07] MEDS ORDERED: LIDOCAINE 4% INH SOLN 4 ML BTL INH ONE (09:48)
[2019-07-07] MEDS: DOXYCYCLINE HYCLATE 100 MG in DEXTROSE 5% 100 ML IV SCH ×2 (10:37→22:28)
[2019-07-07 11:19] LABS: Influenza A virus by PCR Neg for Influ A (Neg); Influenza B virus by PCR Neg for Influ B (Neg)
[2019-07-07] MEDS ORDERED: SODIUM CHLORIDE 0.9% 500 ML IV ONE (11:48)
--- NOTE | 2019-07-07 16:28 | Hospitalist Progress Note ---
Date of Service July 07, 2019 Assessment & Plan (1) Cough: from Bronchitis, bronchospasm Hypoxia -84-year-old female who presents with cough and shortness of breath going on since end of May 2019 and despite lack of pneumonia findings and also completed a trial of Azithromycin as outpatient, the patient continues to have persistent cough -on hospital presentation patient with wheezing on exam and Chest X ray also absent of lung infiltrates -patient was given scheduled nebulizer treatments and IV solumedrol and also started on Doxycycline -when seen and assessed in AM of 07/07/19, patient had persistent coughing and coughing leading to increased Hypoxia, oxygen desaturation. Patient appeared to be somewhat improved with aerosol lidocaine treatment in addition to Xopenex nebulizer treatments and oxymask -at this time will continue scheduled nebulizer treatments and IV solumedrol 20 mg TID. Doxycycline as 100 mg IV BID but procalcitonin is negative and no pneumonia on Chest X rays so Doxycyline may be of only minimal benefit. will give IV ranitidine q12 hours in case any gastric reflux elevated lactic acid -lactic acid of 2.2 likely from nebulizer treatments -will give IV fluids but would not trend frequently -procalcitonin is negative and no pneumonia on Chest X rays Hypothyroidism -Continue Synthroid. Osteoarthritis - Pain medications p.r.n. Deep venous thrombosis prophylaxis: heparin subcutaneously. Full code. Subjective when seen and assessed in AM of 07/07/19, patient had persistent coughing and coughing leading to increased Hypoxia, oxygen desaturation. Patient appeared to be somewhat improved with aerosol lidocaine treatment in addition to Xopenex nebulizer treatments and oxymask no fevers. no chest pain. no palpitations. no headache. no dizziness. no throat pain. no abdominal pain. no vomiting Review of Systems Review of Systems: All systems reviewed & are unremarkable except as noted in HPI & below Physical Exam Constitutional: cooperative ENMT: external ear and nose normal, oropharynx normal Neck: normal visual inspection Respiratory: + cough and symmetric chest movement Gastrointestinal (Abdomen): normal bowel sounds, soft, nontender, no hepatosplenomegaly Musculoskeletal: Head/Neck/Chest: normocephalic and head atraumatic Neurologic: PERRL, EOMI, accommodation nl, no face palsy, no dysarthria CN's II-XI intact bilaterally Psychiatric: A+Ox3, euthymic affect Results & Data Vital Signs (Past 12 Hours) Vital Signs Temp Pulse Resp BP Pulse Ox 07/07/19 13:26 20 95 07/07/19 11:45 36.8 C 100 H 18 127/76 95 07/07/19 10:03 107 H 28 H 96 07/07/19 09:43 113 H 24 90 07/07/19 08:12 36.5 C 81 18 123/72 92 07/07/19 06:59 81 20 93
[2019-07-07] MEDS: SODIUM CHLORIDE 0.9% 1000ML 1,000 ML IV SCH (16:55)
[2019-07-07] MEDS ORDERED: CHLORASEPTIC 1.4% SOLN 180 ML BTL MT PRN (18:45)
[2019-07-07] MEDS: methylPREDNISolone 20 MG in SYRINGE 0 ML IV SCH (20:43)
[2019-07-07] MEDS ORDERED: DiphenhydrAMINE HCL 50 MG/ML VIAL IV STA (21:28)
[2019-07-07] MEDS: IPRATROPIUM BROMIDE NEB SOLN 0.02% 2.5 ML VIAL INH PRN (21:35)
[2019-07-08] MEDS: IPRATROPIUM BROMIDE NEB SOLN 0.02% 2.5 ML VIAL INH SCH ×3 (00:38→18:11)
[2019-07-08] MEDS: LEVALBUTEROL HCL 0.63 MG/3 ML NEB NEB SCH ×3 (00:38→18:12)
[2019-07-08 07:20] LABS: Basophils # (auto) 0.01 K/uL (0-0.2); Basophils % (auto) 0.1 %; Hematocrit (blood only) 38.4 % (37-47); Hemoglobin 12.7 g/dL (12.0-16.0); Immature Granulocytes # (auto) 0.05 K/uL (0.00-0.02); Immature Granulocytes % (auto) 0.3 %; Lymphocytes # (auto) 1.24 K/uL (1.2-3.4); Lymphocytes % (auto) 7.1 %; Mean Corpuscular Hemoglobin 32.1 pg (25-34); Mean Corpuscular Hgb Conc 33.1 g/dL (32-36); Mean Platelet Volume 9.2 fL (7.4-10.4); Monocytes # (auto) 1.01 K/uL (0.11-0.59); Monocytes % (auto) 5.8 %; Neutrophils # (auto) 15.22 K/uL (1.4-6.5); Neutrophils % (auto) 86.7 %; Platelet Count 329 K/uL (130-400); RDW Coefficient of Variation 13.6 % (11.5-14.5); RDW Standard Deviation 48.2 fL (36.4-46.3); Red Blood Count 3.96 M/uL (4.2-5.4); White Blood Count 17.53 K/uL (4.8-10.8)
[2019-07-08 07:22] LABS: BUN Creatinine Ratio 13.7 (10-20); Calcium 8.8 mg/dl (8.5-10.1); Creatinine Clr Calc Pharmacy 39.8 ml/min; Est GFR (African American) 65.5; Est GFR (Non-African American) 56.5; Potassium 4.1 mmol/L (3.5-5.1)
[2019-07-08] MEDS: MULTIVITAMIN TAB PO SCH (08:07)
[2019-07-08] MEDS: methylPREDNISolone 20 MG in SYRINGE 0 ML IV SCH (08:07)
[2019-07-08] MEDS: ENOXAPARIN INJ 40 MG/0.4 ML SYR SQ SCH (08:13)
[2019-07-08] MEDS: DOXYCYCLINE HYCLATE 100 MG in DEXTROSE 5% 100 ML IV SCH ×2 (10:18→22:31)
[2019-07-08] MEDS: SODIUM CHLORIDE 0.9% 1000ML 1,000 ML IV SCH (10:18)
--- NOTE | 2019-07-08 13:50 | Hospitalist Progress Note ---
Date of Service July 08, 2019 Assessment & Plan (1) Cough: from Bronchitis, bronchospasm Hypoxia -84-year-old female who presents with cough and shortness of breath going on since end of May 2019 and despite lack of pneumonia findings and also completed a trial of Azithromycin as outpatient, the patient continues to have persistent cough -on hospital presentation patient with wheezing on exam and Chest X ray also absent of lung infiltrates -patient was given scheduled nebulizer treatments and IV solumedrol and also started on Doxycycline -when seen and assessed in AM of 07/07/19, patient had persistent coughing and coughing leading to increased Hypoxia, oxygen desaturation. Patient appeared to be somewhat improved with aerosol lidocaine treatment in addition to Xopenex nebulizer treatments and oxymask; -at this time will continue scheduled nebulizer treatments and IV solumedrol 20 mg TID. Doxycycline as 100 mg IV BID but procalcitonin is negative and no pneumonia on Chest X rays so Doxycycline may be of only minimal benefit. will give IV ranitidine q12 hours in case any gastric reflux -07/08/19: Patient appears to be clinically improved after trial of IV solumedrol. She has been able to take the liquid diet without acute coughing spasms. Patient ambulated. Patient denies chest pain. breathing better today. will plan on transition to oral prednisone from solumedrol. continue Doxycycline. transition nebulizers from scheduled to prn elevated lactic acid -lactic acid of 2.2 likely from nebulizer treatments -have been given IV fluids but would not trend frequently -procalcitonin is negative and no pneumonia on Chest X rays Hypothyroidism -Continue Synthroid. Osteoarthritis - Pain medications p.r.n. Deep venous thrombosis prophylaxis: heparin subcutaneously. Full code. Subjective Patient appears to be clinically improved after trial of IV solumedrol. She has been able to take the liquid diet without acute coughing spasms. Patient ambulated. Patient denies chest pain. breathing better today. no dizziness. no headache. no dizziness. no lightheadedness Review of Systems Review of Systems: All systems reviewed & are unremarkable except as noted in HPI & below Physical Exam Constitutional: cooperative Eyes: PERRL, conjunctivae normal, anicteric sclerae EOM intact bilaterally ENMT: external ear and nose normal, oropharynx normal Neck: normal visual inspection Respiratory: normal respiratory effort, able to speak in complete sentences and symmetric chest movement Cardiovascular: Rate/Rhythm: regular rate and regular rhythm Gastrointestinal (Abdomen): normal bowel sounds, soft, nontender, no hepatosplenomegaly Musculoskeletal: Head/Neck/Chest: normocephalic and head atraumatic Neurologic: PERRL, EOMI, accommodation nl, no face palsy, no dysarthria CN's II-XI intact bilaterally Psychiatric: A+Ox3, euthymic affect Results & Data Vital Signs (Past 12 Hours) Vital Signs Temp Pulse Pulse Resp BP BP Pulse Ox 07/08/19 13:29 07/08/19 07:34 74 16 97 07/08/19 07:19 36.6 C 73 18 104/62 96 07/08/19 04:14 36.5 C 86 18 107/58 L 96 Pulse Ox Pulse Ox Pulse Ox 07/08/19 13:29 94 94 88 L 07/08/19 07:34 07/08/19 07:19 07/08/19 04:14
[2019-07-08] MEDS ORDERED: predniSONE 20 MG TAB PO ONE (14:00)
[2019-07-08] MEDS: IPRATROPIUM BROMIDE NEB SOLN 0.02% 2.5 ML VIAL INH PRN (14:01)
[2019-07-09] MEDS: IPRATROPIUM BROMIDE NEB SOLN 0.02% 2.5 ML VIAL INH PRN ×3 (01:14→20:01)
[2019-07-09] MEDS: LEVALBUTEROL 1.25MG/0.5ML NEB INH PRN ×3 (01:14→20:02)
[2019-07-09 07:27] LABS: Basophils # (auto) 0.01 K/uL (0-0.2); Basophils % (auto) 0.1 %; Eosinophils # (auto) 0.03 K/uL (0-0.5); Eosinophils % (auto) 0.2 %; Hematocrit (blood only) 37.1 % (37-47); Hemoglobin 12.4 g/dL (12.0-16.0); Immature Granulocytes # (auto) 0.04 K/uL (0.00-0.02); Immature Granulocytes % (auto) 0.3 %; Lymphocytes # (auto) 2.27 K/uL (1.2-3.4); Lymphocytes % (auto) 16.6 %; Mean Corpuscular Hemoglobin 32.3 pg (25-34); Mean Corpuscular Hgb Conc 33.4 g/dL (32-36); Mean Corpuscular Volume 96.6 fL (80-100); Monocytes # (auto) 1.44 K/uL (0.11-0.59); Monocytes % (auto) 10.6 %; Neutrophils # (auto) 9.85 K/uL (1.4-6.5); Neutrophils % (auto) 72.2 %; Platelet Count 302 K/uL (130-400); RDW Coefficient of Variation 13.8 % (11.5-14.5); RDW Standard Deviation 49.1 fL (36.4-46.3); Red Blood Count 3.84 M/uL (4.2-5.4); White Blood Count 13.64 K/uL (4.8-10.8)
[2019-07-09] MEDS: ENOXAPARIN INJ 40 MG/0.4 ML SYR SQ SCH (07:50)
[2019-07-09] MEDS: MULTIVITAMIN TAB PO SCH (07:50)
[2019-07-09 08:00] LABS: BUN Creatinine Ratio 21.9 (10-20); Creatinine Clr Calc Pharmacy 50.6 ml/min; Est GFR (African American) 87.4; Est GFR (Non-African American) 75.4; Potassium 3.8 mmol/L (3.5-5.1)
[2019-07-09 08:39] LABS: Base Excess VBG 2.4 mEq/L; Oxygen Saturation VBG 68.5 %; pH VBG 7.39 (7.36-7.41)
[2019-07-09] MEDS: DOXYCYCLINE HYCLATE 100 MG in DEXTROSE 5% 100 ML IV SCH ×2 (10:16→21:18)
--- NOTE | 2019-07-09 11:08 | Pulmonary Consultation ---
Date of Consultation July 09, 2019 Assessment & Plan (1) Cough: -- Non-remitting cough likely secondary to tracheobronchitis Chest x-ray appears clean, bilateral costophrenic angles cardiophrenic angles are clean. Rhonchi appreciated on examination. Patient had no leukocytosis on examination but the following day it went up to 17,000 this is likely secondary to steroids. I would continue with scheduled bronchodilators with mucolytic Cough suppressants. Patient is on H2 blockers, will add diphenhydramine 25 mg every [address] chest without contrast No need for steroids. Is most likely a viral component to it. Usually viral tracheobronchitis takes a prolonged course to resolve completely. We will continue with symptomatic management for the time being. (2) Wheezing: History of Present Illness Attending Physician: Armin Cordoba MD History of Present Illness 65-year-old female with past medical history of dyslipidemia, GERD, hypothyroidism presented to the with complaints of cough which has been going on since approximately a month. Patient was given azithromycin and steroid as an outpatient but that did not help with her cough. When she is not coughing she is not short of breath but when she gets the bouts of cough she does get short of breath. Patient is bringing up clear phlegm. Positive runny nose, no tearing from the eyes. No recent upper respiratory infection. No sick contacts. No hemoptysis, no dizziness, no headache, no nausea or vomiting. Patient denies any dysuria, no hematuria, no diarrhea, no hematochezia. No night sweats, no weight loss. Social history: Minimal smoking when she was young quit in the 60s, no illicit drug use, social alcohol. Used to be work as a desk job. No exposure to any chemicals. Has dogs at home. She was told that she is allergic to dog more than 4-5 years ago. She recently got a new dog a year ago. No birds at home. Patient has seasonal allergies she takes [id number] antiallergic medication as needed. No personal or family history of asthma. Allergies Allergy/AdvReac Type Severity Reaction Status Date / Time codeine AdvReac Unknown NAUSEA Verified 07/06/19 18:00 Home Medications Home Medications Medication Instructions Recorded Confirmed Type doxylamine succinate [Unisom 25 mg PO HS PRN #0 01/23/16 07/06/19 History (doxylamine)] albuterol sulfate 2 puff INHALATION QID 07/06/19 07/06/19 History aspirin [Shantelle Aspirin] 650 mg PO DAILY PRN 07/06/19 07/06/19 History cholecalciferol (vitamin D3) 2,000 unit PO QAM 07/06/19 07/06/19 History [Vitamin D3] levothyroxine 25 mcg PO QAM 07/06/19 07/06/19 History multivitamin 1 tab PO QAM 07/06/19 07/06/19 History Patient History Medical History (Updated 07/09/19 @ 11:03 by David Art MD) Dyslipidemia H/O esophageal reflux Osteoporosis Social History Preferred Language: Korean Communication Ability: Effective Yarn Spinner Required: No Beliefs That Will Affect Care: None Current Living Situation: Spouse Other Information That Helps Us Care for You: No Feels Safe at Home: No Is there a partner from a previous relationship who is making you feel unsafe now?: No Any Concerns about Your Family Situation: No Would You Like to Speak to Someone About Your Situation: No Safety Concerns: Feels Safe At This Time Smoking Status: Former smoker Tobacco Type: cigarettes ; Do You Dip or Chew Tobacco: No ; Second Hand Exposure: No ; Tobacco Cessation Education Requested by Patient: No Hx Alcohol Use: Yes Alcohol type: wine Hx Substance Use: No Review of Systems Review of Systems: All systems reviewed & are unremarkable except as noted in HPI & below Physical Exam Physical Exam: Constitutional: Mild distress secondary to cough HEENT: EOMI, PERRLA, moist nasal mucosa, conjunctival congestion Respiratory system: Decreased air entry bilaterally, positive rhonchi, no wheeze, no crackles CVS: S1-S2 positive, no murmurs or gallops Abdomen: Soft, nontender, nondistended, positive bowel sounds x4 Extremities: +2 pulses bilaterally radialis/ dorsalis pedis, no cyanosis, no edema Neuro: Awake alert oriented x3 Psych: Normal mood and affect G/U: No Graves Skin: no rashes, warm and dry Lymphatic: no cervical or axillary lymphadenopathy Results & Data Vital Signs (Past 12 Hours) Vital Signs Temp Pulse Pulse Pulse Resp BP Pulse Ox 07/09/19 10:49 77 07/09/19 07:58 36.4 C L 86 18 130/78 92 07/09/19 04:14 36.4 C L 69 20 117/60 91 07/09/19 03:53 73 18 92 07/09/19 01:20 77 21 91 07/09/19 00:00 70 07/08/19 23:00 36.6 C 82 22 150/79 H 93 07/09/19 07:12 07/09/19 07:12 PG Care Time/CCT Total # of Minutes Spent Total Time Spent with Patient: Total time spent is greater than 50% in coordination of care (as documented) at patient's floor/unit and/or counseling patient:
--- NOTE | 2019-07-09 12:00 | CT Scan Report ---
CT chest wo con CT DOSE: 209.06 mGy.cm CLINICAL HISTORY: 84 years-old Female with r/o PNA. Acute shortness of breath with possible pneumoni a TECHNIQUE: Multiaxial CT images of the chest were performed without contrast. A dose lowering techni que was utilized adhering to the principles of ALARA. COMPARISON: Chest radiograph 07/06/2019, chest CT 12/14/2005. FINDINGS: Limited exam without the use of IV contrast. Heart is normal in size. Trace pericardial effusion. Cor onary arterial calcifications. No thoracic aortic aneurysm. Moderate calcified plaque of the thoracic aorta. No adenopathy by CT size criteria. Nonspecific mildly prominent subcarinal and paratracheal l ymph nodes measure up to 9 mm. Trace pleural effusions, right greater than left. No pneumothorax. Min imal subsegmental left basilar atelectasis. Mucous plugging, right greater than left is most pronounc ed within the lung bases. 2 mm fissural nodule within left midlung on image 145 series 4 is likely be nign. Mild bronchiectasis with subpleural consolidation of the medial segment right middle lobe. Line ar subsegmental opacities of the basal right lower lobe. Mild nonspecific distal esophageal wall thickening. Renal sinus cysts versus pelviectasis on the left , partially imaged. 1.9 cm hypodense lesion of the posterior right hepatic lobe previously demonstrat ed imaging characteristics suggestive of a hemangioma on study from 12/14/2005 appears stable in size. There is an ovoid circumscribed mass of the inferior central to slightly medial left breast, 2.3 x 1. 3 cm. Degenerative changes of the shoulders and spine. No acute fracture identified. IMPRESSION: 1. Trace pleural effusions, right greater than left with multifocal mucus plugging, greatest within t he lung bases. Additionally, there are linear right greater than left bibasilar consolidative opaciti es suggestive of associated atelectasis. Concomitant pneumonitis considered less likely. Correlate cl inically to exclude aspiration. 2. Ovoid soft tissue mass of the inferomedial left breast, 2.3 x 1.3 cm. Correlate with mammography. ACT 112: Negative or not required by law. Electronically signed by: Rj Delgadillo M.D. 07/09/2019 11:59 AM
[2019-07-09] MEDS: BENZONATATE 100 MG CAPSULE PO SCH ×2 (12:26→20:25)
[2019-07-09] MEDS: GUAIFENESIN/DEXTROM SYRUP 100MG/10MG 5ML UDC PO SCH ×3 (12:26→23:33)
[2019-07-09] MEDS ORDERED: ACETAMINOPHEN 325 MG TAB PO PRN (13:49)
--- NOTE | 2019-07-09 16:07 | Hospitalist Progress Note ---
Date of Service July 09, 2019 Assessment & Plan (1) Cough: from Bronchitis, bronchospasm Hypoxia (as per pulmonary consult evaluation 07/09/19: Non-remitting cough likely secondary to tracheobronchitis) -84-year-old female who presents with cough and shortness of breath going on since end of May 2019 and despite lack of pneumonia findings and also completed a trial of Azithromycin as outpatient, the patient continues to have persistent cough -on hospital presentation patient with wheezing on exam and Chest X ray also absent of lung infiltrates -patient was given scheduled nebulizer treatments and IV solumedrol and also started on Doxycycline -when seen and assessed in AM of 07/07/19, patient had persistent coughing and coughing leading to increased Hypoxia, oxygen desaturation. Patient appeared to be somewhat improved with aerosol lidocaine treatment in addition to Xopenex nebulizer treatments and oxymask; -at this time will continue scheduled nebulizer treatments and IV solumedrol 20 mg TID. Doxycycline as 100 mg IV BID but procalcitonin is negative and no pneumonia on Chest X rays so Doxycycline may be of only minimal benefit. will give IV ranitidine q12 hours in case any gastric reflux -07/08/19: Patient appears to be clinically improved after trial of IV negro umedrol. She has been able to take the liquid diet without acute coughing spasms. Patient ambulated. Patient denies chest pain. breathing better today. will plan on transition to oral prednisone from solumedrol. continue Doxycycline. transition nebulizers from scheduled to prn -07/09/19 overnight patient had coughing which required breathing treatments. Hospitalist consulted pulmonary physician: (continue with scheduled bronchodilators with mucolytic Cough suppressants. Patient is on H2 blockers, will add diphenhydramine 25 mg every 12 hours No need for steroids) -CT scan 07/09/19: Trace pleural effusions, right greater than left with multifocal mucus plugging, greatest within the lung bases. Additionally, there are linear right greater than left bibasilar consolidative opacities suggestive of associated atelectasis. Concomitant pneumonitis considered less likely. -speech and swallow following the patient Breast Mass -incidental finding on 07/09/19 CT Chest - Ovoid soft tissue mass of the inferomedial left breast, 2.3 x 1.3 cm; Correlate with mammography which can be done as outpatient Leukocytosis -from respiratory steroids elevated lactic acid -initial lactic acid of 2.2 likely from nebulizer treatments on 07/07/19 -procalcitonin is negative and no pneumonia on Chest X rays -lactic acid is 1.2 when checked on 07/09/19 Hypothyroidism -Continue Synthroid. Osteoarthritis - Pain medications p.r.n. Deep venous thrombosis prophylaxis: heparin subcutaneously. Full code. Subjective overnight patient had coughing which required breathing treatments. currently no chest pain discomforts. no palpitations. does have rhonchi on lung exams and taking deep breaths triggers more coughing. no nausea. no vomiting. no lightheadedness no dizziness Review of Systems Review of Systems: All systems reviewed & are unremarkable except as noted in HPI & below Physical Exam Constitutional: cooperative Eyes: PERRL, conjunctivae normal, anicteric sclerae EOM intact bilaterally ENMT: external ear and nose normal, oropharynx normal Neck: normal visual inspection Respiratory: normal respiratory effort, able to speak in complete sentences and symmetric chest movement Auscultation: + rhonchi Cardiovascular: Rate/Rhythm: regular rate and regular rhythm Gastrointestinal (Abdomen): normal bowel sounds, soft, nontender, no hepatosplenomegaly Musculoskeletal: Head/Neck/Chest: normocephalic and head atraumatic Neurologic: PERRL, EOMI, accommodation nl, no face palsy, no dysarthria CN 's II-XI intact bilaterally Psychiatric: A+Ox3, euthymic affect Results & Data Vital Signs (Past 12 Hours) Vital Signs Temp Pulse Pulse Resp BP Pulse Ox 07/09/19 15:58 65 07/09/19 15:18 37.0 C 68 16 117/62 90 07/09/19 11:38 36.5 C 59 L 18 102/64 98 07/09/19 10:49 77 07/09/19 07:58 36.4 C L 86 18 130/78 92 07/09/19 04:14 36.4 C L 69 20 117/60 91
[2019-07-09] MEDS: ACETYLCYSTEINE 20% INHAL SOLN ***DISPENSED BY RESP. INH SCH (20:02)
[2019-07-10] MEDS: GUAIFENESIN/DEXTROM SYRUP 100MG/10MG 5ML UDC PO SCH ×4 (06:14→23:33)
[2019-07-10] MEDS: LEVOTHYROXINE SODIUM 25 MCG TABLET PO SCH (06:14)
[2019-07-10] MEDS: IPRATROPIUM BROMIDE NEB SOLN 0.02% 2.5 ML VIAL INH PRN ×2 (07:05→19:31)
[2019-07-10] MEDS: ACETYLCYSTEINE 20% INHAL SOLN ***DISPENSED BY RESP. INH SCH ×2 (07:05→19:31)
[2019-07-10] MEDS: LEVALBUTEROL 1.25MG/0.5ML NEB INH PRN ×2 (07:09→19:31)
[2019-07-10] MEDS: ENOXAPARIN INJ 40 MG/0.4 ML SYR SQ SCH (09:13)
[2019-07-10] MEDS: BENZONATATE 100 MG CAPSULE PO SCH ×3 (09:14→20:05)
[2019-07-10] MEDS: MULTIVITAMIN TAB PO SCH (09:14)
[2019-07-10] MEDS: CHOLECALCIFEROL 1,000 UNITS TAB PO SCH (09:14)
[2019-07-10] MEDS ORDERED: FAMOTIDINE 20 MG TAB PO PRN (09:59)
[2019-07-10] MEDS: DOXYCYCLINE HYCLATE 100 MG CAP PO SCH ×2 (11:04→20:06)
--- NOTE | 2019-07-10 14:05 | Pulmonology Progress Note ---
Date of Service July 10, 2019 Assessment & Plan (1) Cough: CT chest with some mucous plugging. She did have a very significant peripheral eosinophilia on presentation. Possibly has bronchitis, perhaps viral. Will check IgE level as well on off chance this is an ABPA like picture given th e mild mucous plugging and eosinophilia (although unlikely given no significant history of asthma). Also recommend a flutter valve to be used 3-4 times a day especially in the acute setting. She does have a vest in the room currently. Given that she does sound a bit bronchospastic, will recommend to complete a course of steroids. Ordered for prednisone 30 mg once daily. She can take this for 4 days and stop. I also ordered for symbicort that should be used twice daily. She needs to follow up with us in the pulm clinic with full PFTs. She does have some smoking history and some second hand smoking exposure as well. (2) Wheezing: (3) Mucus plugging of bronchi: Subjective Patient is substantially improved today. Minimal coughing. Wheezing and shortness of breath improved. Patient was able to ambulate about the hallways and on the steps today. No chest pain or fevers. Results & Data Vital Signs (Past 12 Hours) Vital Signs Temp Pulse Pulse Resp BP Pulse Ox 07/10/19 12:59 91 07/10/19 10:52 98.1 F 76 18 122/77 91 07/10/19 10:20 58 L 07/10/19 10:13 91 07/10/19 07:21 98.1 F 69 18 147/77 H 95 07/10/19 07:10 59 L 20 91 07/10/19 04:42 97.9 F 62 20 100/55 L 92 PG Care Time/CCT Total # of Minutes Spent Total Time Spent with Patient: Total time spent is greater than 50% in coordination of care (as documented) at patient's floor/unit and/or counseling patient:
[2019-07-10] MEDS: predniSONE 10 MG TABLET PO SCH (15:57)
--- NOTE | 2019-07-10 18:04 | Hospitalist Progress Note ---
Date of Service July 10, 2019 Assessment & Plan (1) Acute bronchitis: Improved since admission. Likely viral but continue doxycycline. Cont supportive care with benzonatate, cough syrup, mucomyst and benadryl. Pulm recommending prednisone and Symbicort BID at this time. (2) Hypoxia: She doesn't require oxygen at baseline. Possibly 2/2 mucous plugging. Cont flutter valve and treatments above. Outpatient PFTs when improved. (3) Hypothyroidism: cont Synthroid per home regimen. (4) DVT prophylaxis: Lovenox Full Code Dispo-to home when medically stable. She lives at home with her . Selina Rios, [facility] Hospitalist Subjective 84 yo F presented with excessive coughing and SOB which is improved. She feels this illness may be from an exposure to her dog. She denies fevers or chills. She is tolerating PO. Review of Systems Review of Systems: All systems reviewed & are unremarkable except as noted in HPI & below Physical Exam Physical Exam: CONSTITUTIONAL: WNWD, vitals as above, generally well- appearing EYES: normal conjunctivae, no scleral icterus ENT: MMM RESPIRATORY: +rales throughout all lung shahid, no crackles or wheezes, normal respiratory effort CARDIOVASCULAR: regular rate and rhythm, S1 and 2 heard without murmurs, gallops or rubs, no JVD, no peripheral edema GASTROINTESTINAL: soft, nontender, nondistended MUSCULOSKELETAL: strength 5/5 throughout, head is normocephalic and atraumatic SKIN: warm and dry NEUROLOGIC: CN 2-12 grossly intact, normal cognition, normal speech, no gross focal deficit PSYCHIATRIC: alert cooperative and oriented to person, place and time. Results & Data Vital Signs (Past 12 Hours) Vital Signs Temp Pulse Pulse Resp BP Pulse Ox 07/10/19 16:00 64 07/10/19 15:17 37.1 C 73 19 131/69 90 07/10/19 12:59 91 07/10/19 10:52 36.7 C 76 18 122/77 91 07/10/19 10:20 58 L 07/10/19 10:13 91 07/10/19 07:21 36.7 C 69 18 147/77 H 95 07/10/19 07:10 59 L 20 91 Medications Administered Current Inpatient Medications Acetaminophen (Tylenol) 325 mg PO Q6H PRN PRN Reason: Pain or Fever Stop: 08/05/19 21:14 Acetylcysteine (Mucomyst 20%) 5 ml INH Q12R [facility] Stop: 08/08/19 18:59 Last Admin: 07/10/19 07:05 Dose: 5 ml Documented by: Aspirin (Ecotrin) 325 mg PO DAILY PRN PRN Reason: Pain Stop: 08/05/19 21:14 Benzonatate (Tessalon Perle) 100 mg PO TID [facility] Stop: 08/08/19 13:59 Last Admin: 07/10/19 13:47 Dose: 100 mg Documented by: Budesonide/Formoterol Fumarate (Symbicort 80mcg/4.5mcg) 2 puffs INH BID [facility] Stop: 08/09/19 20:59 Diphenhydramine HCl (Benadryl Capsule) 25 mg PO Q12 [facility] Stop: 08/08/19 10:59 Last Admin: 07/10/19 09:13 Dose: 25 mg Documented by: Doxycycline Hyclate (Vibramycin) 100 mg PO BID [facility]; Protocol Stop: 07/17/19 10:44 Last Admin: 07/10/19 11:04 Dose: 100 mg Documented by: Enoxaparin Sodium (Lovenox) 40 mg SQ QAM [facility] Stop: 08/07/19 08:59 Last Admin: 07/10/19 09:13 Dose: Not Given Documented by: Famotidine (Pepcid) 20 mg PO BID PRN PRN Reason: heartburn Stop: 08/09/19 09:59 Guaifenesin/Dextromethorphan (Robitussin Cough-Chest Dm) 5 ml PO Q6 [facility] Stop: 08/08/19 10:59 Last Admin: 07/10/19 12:42 Dose: 5 ml Documented by: Ipratropium [place] (Atrovent 0.02% 0.5mg/2.5ml) 0.5 mg INH Q8R PRN PRN Reason: Shortness Of Breath Or Wheezing Stop: 08/05/19 21:14 Last Admin: 07/10/19 07:05 Dose: 0.5 mg Documented by: Levalbuterol HCl (Xopenex 1.25mg/0.5ml Neb) 1.25 mg INH Q2H PRN PRN Reason: Shortness Of Breath Or Wheezing Stop: 08/05/19 21:14 Last Admin: 07/10/19 07:09 Dose: 1.25 mg Documented by: [facility]othy[facility]ine [facility]) [facility] Stop: 08/06/19 06:29 Last Admin: 07/10/19 06:14 Dose: 25 mcg Documented by: Menthol (Nice) 1 ochoa BUCCAL PRN PRN PRN Reason: Cough Stop: 08/06/19 08:33 Last Admin: 07/08/19 23:32 Dose: 1 ochoa Documented by: Multivitamins (Multivitamin Tab) 1 tab PO [facility] Stop: 08/06/19 08:59 Last Admin: 07/10/19 09:14 Dose: 1 tab Documented by: Nitroglycerin (Nitrostat) 0.4 mg SL UD PRN PRN Reason: Chest Pain Stop: 08/05/19 21:14 Ondansetron HCl (Zofran) 4 mg IV Q6H PRN PRN Reason: Nausea Stop: 08/05/19 21:14 Phenol (Chloraseptic 1.4% [place]) 1 sprays MT Q12H PRN PRN Reason: Sore Throat Stop: 08/06/19 18:44 Polyethylene Glycol (Miralax Powder Packet) 17 gm PO DAILY PRN PRN Reason: Constipation Stop: 08/05/19 21:14 Prednisone (Prednisone) 30 mg PO DAILY [facility] Stop: 08/09/19 13:59 Last Admin: 07/10/19 15:57 Dose: 30 mg Documented by: Vitamin D (Vitamin D3) 2,000 units PO [facility] Stop: 08/06/19 08:59 Last Admin: 07/10/19 09:14 Dose: 2,000 units Documented by:
[2019-07-10] MEDS: BUDESONIDE/FORMOTEROL FUMARATE 80/4.5 60 PUFFS/INHALER INH SCH (20:07)
[2019-07-11] MEDS: GUAIFENESIN/DEXTROM SYRUP 100MG/10MG 5ML UDC PO SCH ×4 (05:44→23:41)
[2019-07-11] MEDS: LEVOTHYROXINE SODIUM 25 MCG TABLET PO SCH (05:44)
[2019-07-11 06:16] LABS: Hematocrit (blood only) 36.7 % (37-47); Hemoglobin 12.3 g/dL (12.0-16.0); Mean Corpuscular Hgb Conc 33.5 g/dL (32-36); Mean Corpuscular Volume 95.6 fL (80-100); Mean Platelet Volume 9.2 fL (7.4-10.4); Platelet Count 286 K/uL (130-400); RDW Coefficient of Variation 13.2 % (11.5-14.5); Red Blood Count 3.84 M/uL (4.2-5.4); White Blood Count 9.11 K/uL (4.8-10.8)
[2019-07-11 06:57] LABS: BUN Creatinine Ratio 22.9 (10-20); Calcium 8.6 mg/dl (8.5-10.1); Creatinine Clr Calc Pharmacy 57.6 ml/min; Est GFR (African American) 95.8; Est GFR (Non-African American) 82.7; Potassium 3.8 mmol/L (3.5-5.1)
[2019-07-11] MEDS: LEVALBUTEROL 1.25MG/0.5ML NEB INH PRN ×2 (07:10→20:04)
[2019-07-11] MEDS: ACETYLCYSTEINE 20% INHAL SOLN ***DISPENSED BY RESP. INH SCH (07:10)
[2019-07-11] MEDS: MULTIVITAMIN TAB PO SCH (09:27)
[2019-07-11] MEDS: BUDESONIDE/FORMOTEROL FUMARATE 80/4.5 60 PUFFS/INHALER INH SCH ×2 (09:27→20:55)
[2019-07-11] MEDS: predniSONE 10 MG TABLET PO SCH (09:27)
[2019-07-11] MEDS: DOXYCYCLINE HYCLATE 100 MG CAP PO SCH ×2 (09:29→20:57)
[2019-07-11] MEDS: BENZONATATE 100 MG CAPSULE PO SCH ×3 (09:29→20:56)
[2019-07-11] MEDS: CHOLECALCIFEROL 1,000 UNITS TAB PO SCH (09:29)
[2019-07-11] MEDS: ENOXAPARIN INJ 40 MG/0.4 ML SYR SQ SCH (09:33)
--- NOTE | 2019-07-11 11:23 | Pulmonology Progress Note ---
Date of Service July 11, 2019 Assessment & Plan (1) Cough: CT chest with some mucous plugging. She did have a very significant peripheral eosinophilia on presentation. Possibly has bronchitis, perhaps viral. IgE level pending on off chance this is an ABPA like picture given the mild muco us plugging and eosinophilia (although unlikely given no significant history of asthma). Also recommend a flutter valve to be used 3-4 times a day especially in the acute setting. Given that she does sound a bit bronchospastic, will recommend to complete a course of steroids. Ordered for prednisone 30 mg once daily. Recommend prednisone for 5 days total. I also ordered for symbicort that should be used twice daily. She does have hypoxemia as well and I think this is likely secondary to some shunt physiology from atelectasis. Recommend continued ambulation. She needs to follow up with us in the pulm clinic with full PFTs. She does have some smoking history and some second hand smoking exposure as well. (2) Wheezing: (3) Mucus plugging of bronchi: (4) Acute hypoxemic respiratory failure: Subjective Patient still coughing some. Requiring 4 L nasal cannula to maintain sats around 94%.Denies any chest pain, fevers, nausea or vomiting. Results & Data Vital Signs (Past 12 Hours) Vital Signs Temp Pulse Pulse Resp BP Pulse Ox 07/11/19 07:48 97.9 F 73 18 130/77 94 07/11/19 07:12 78 19 92 07/11/19 07:10 62 07/11/19 04:18 98.4 F 64 16 113/69 93 PG Care Time/CCT Total # of Minutes Spent Total Time Spent with Patient: Total time spent is greater than 50% in coordination of care (as documented) at patient's floor/unit and/or counseling patient:
--- NOTE | 2019-07-11 18:17 | Hospitalist Progress Note ---
Date of Service July 11, 2019 Assessment & Plan (1) Hypoxia: She doesn't require oxygen at baseline. Possibly 2/2 mucous plugging vs shunt physiology from atelectasis. Cont pulmonary toilet with flutter valve and chest PT use. Spiriva/prednisone added. Outpatient PFTs when improved. (2) Acute bronchitis: Improved since admission. Likely viral but continue doxycycline. Cont supportive care with benzonatate, cough syrup, mucomyst and benadryl. Pulm recommending prednisone and Symbicort BID at this time. (3) Peripheral eosinophilia: IgE level is pending. (4) Hypothyroidism: cont Synthroid per home regimen. (5) DVT prophylaxis: Lovenox Full Code Dispo-to home when medically stable and off oxygen. She lives at home with her . Selina Rios DO [facility] Hospitalist Subjective Reports she is about the same as yesterday. Oxygen needs appear to have stayed the same without improvement. She is requiring anywhere from 2 to 4 L/min of oxygen. Patient denies fevers or chills. Reports improvement overall with symptoms. Tolerating p.o. Mentating and ambulating at baseline. Review of Systems Review of Systems: All systems reviewed & are unremarkable except as noted in HPI & below Physical Exam Physical Exam: CONSTITUTIONAL: WNWD, vitals as above, generally well-appea ring EYES: normal conjunctivae, no scleral icterus ENT: MMM RESPIRATORY: Clear to auscultation bilaterally, no crackles rales or wheezes, normal respiratory effort CARDIOVASCULAR: regular rate and rhythm, S1 and 2 heard without murmurs, gallops or rubs, no JVD, no peripheral edema GASTROINTESTINAL: soft, nontender, nondistended MUSCULOSKELETAL: strength 5/5 throughout, head is normocephalic and atraumatic SKIN: warm and dry NEUROLOGIC: CN 2-12 grossly intact, normal cognition, normal speech, no gross focal deficit PSYCHIATRIC: alert cooperative and oriented to person, place and time. Results & Data Vital Signs (Past 12 Hours) Vital Signs Temp Pulse Pulse Resp BP Pulse Ox 07/11/19 15:39 36.5 C 80 80 H 114/69 90 07/11/19 12:00 36.4 C L 68 18 131/74 92 07/11/19 07:48 36.6 C 73 18 130/77 94 07/11/19 07:12 78 19 92 07/11/19 07:10 62 Laboratory Results Short CBC 07/11/19 Range/Units 05:42 WBC 9.11 (4.8-10.8) K/uL Hgb 12.3 (12.0-16.0) g/dL Hct 36.7 L (37-47) % Plt Count 286 (130-400) K/uL BMP 07/11/19 05:42 Sodium 138 Potassium 3.8 Chloride 106 Carbon Dioxide 27 BUN 15 Creatinine 0.65 Glucose 93 Calcium 8.6 Medications Administered Current Inpatient Medications Acetaminophen (Tylenol) 325 mg PO Q6H PRN PRN Reason: Pain or Fever Stop: 08/05/19 21:14 Aspirin (Ecotrin) 325 mg PO DAILY PRN PRN Reason: Pain Stop: 08/05/19 21:14 Benzonatate (Tessalon Perle) 100 mg PO TID [facility] Stop: 08/08/19 13:59 Last Admin: 07/11/19 14:12 Dose: 100 mg Documented by: Budesonide/Formoterol Fumarate (Symbicort 80mcg/4.5mcg) 2 puffs INH BID [facility] Stop: 08/09/19 20:59 Last Admin: 07/11/19 09:27 Dose: 2 puffs Documented by: Diphenhydramine HCl (Benadryl Capsule) 25 mg PO Q12 [facility] Stop: 08/08/19 10:59 Last Admin: 07/11/19 09:27 Dose: 25 mg Documented by: Doxycycline Hyclate (Vibramycin) 100 mg PO BID [facility]; Protocol Stop: 07/17/19 10:44 Last Admin: 07/11/19 09:29 Dose: 100 mg Documented by: Enoxaparin Sodium (Lovenox) 40 mg SQ QAM [facility] Stop: 08/07/19 08:59 Last Admin: 07/11/19 09:33 Dose: Not Given Documented by: Famotidine (Pepcid) 20 mg PO BID PRN PRN Reason: heartburn Stop: 08/09/19 09:59 Guaifenesin/Dextromethorphan (Robitussin Cough-Chest Dm) 5 ml PO Q6 [facility] Stop: 08/08/19 10:59 Last Admin: 07/11/19 17:36 Dose: 5 ml Documented by: Ipratropium [place] (Atrovent 0.02% 0.5mg/2.5ml) 0.5 mg INH Q8R PRN PRN Reason: Shortness Of Breath Or Wheezing Stop: 08/05/19 21:14 Last Admin: 07/10/19 19:31 Dose: 0.5 mg Documented by: Levalbuterol HCl (Xopenex 1.25mg/0.5ml Neb) 1.25 mg INH Q2H PRN PRN Reason: Shortness Of Breath Or Wheezing Stop: 08/05/19 21:14 Last Admin: 07/11/19 07:10 Dose: 1.25 mg Documented by: Levothyroxine [facility]) [facility]: 08/06/19 06:29 Last Admin: 07/11/19 05:44 Dose: 25 mcg Documented by: Menthol (Nice) 1 ochoa BUCCAL PRN PRN PRN Reason: Cough Stop: 08/06/19 08:33 Last Admin: 07/08/19 23:32 Dose: 1 ochoa Documented by: Multivitamins (Multivitamin Tab) 1 tab PO [facility] Stop: 08/06/19 08:59 Last Admin: 07/11/19 09:27 Dose: 1 tab Documented by: Nitroglycerin (Nitrostat) 0.4 mg SL UD PRN PRN Reason: Chest Pain Stop: 08/05/19 21:14 Ondansetron HCl (Zofran) 4 mg IV Q6H PRN PRN Reason: Nausea Stop: 08/05/19 21:14 Phenol (Chloraseptic 1.4% [place]) 1 sprays MT Q12H PRN PRN Reason: Sore Throat Stop: 08/06/19 18:44 Polyethylene Glycol (Miralax Powder Packet) 17 gm PO DAILY PRN PRN Reason: Constipation Stop: 08/05/19 21:14 Prednisone (Prednisone) 30 mg PO DAILY [facility] Stop: 08/09/19 13:59 Last Admin: 07/11/19 09:27 Dose: 30 mg Documented by: Vitamin D (Vitamin D3) [facility] Stop: 08/06/19 08:59 Last Admin: 07/11/19 09:29 Dose: 2,000 units Documented by:
[2019-07-11] MEDS ORDERED: ACETYLCYSTEINE 20% INHAL SOLN 4ML ***DISPENSED BY RESP. INH SCH (19:00)
[2019-07-11] MEDS: IPRATROPIUM BROMIDE NEB SOLN 0.02% 2.5 ML VIAL INH PRN (20:04)
[2019-07-12] MEDS: GUAIFENESIN/DEXTROM SYRUP 100MG/10MG 5ML UDC PO SCH ×3 (06:03→18:11)
[2019-07-12] MEDS: LEVOTHYROXINE SODIUM 25 MCG TABLET PO SCH (06:04)
[2019-07-12] MEDS: LEVALBUTEROL 1.25MG/0.5ML NEB INH PRN (07:24)
[2019-07-12] MEDS: IPRATROPIUM BROMIDE NEB SOLN 0.02% 2.5 ML VIAL INH PRN (07:24)
[2019-07-12] MEDS: CHOLECALCIFEROL 1,000 UNITS TAB PO SCH (08:08)
[2019-07-12] MEDS: BENZONATATE 100 MG CAPSULE PO SCH ×3 (08:09→20:38)
[2019-07-12] MEDS: MULTIVITAMIN TAB PO SCH (08:09)
[2019-07-12] MEDS: predniSONE 10 MG TABLET PO SCH (08:09)
[2019-07-12] MEDS: DOXYCYCLINE HYCLATE 100 MG CAP PO SCH ×2 (08:09→20:38)
[2019-07-12] MEDS: ENOXAPARIN INJ 40 MG/0.4 ML SYR SQ SCH (08:09)
[2019-07-12] MEDS: BUDESONIDE/FORMOTEROL FUMARATE 80/4.5 60 PUFFS/INHALER INH SCH ×2 (08:09→20:38)
--- NOTE | 2019-07-12 14:14 | Hospitalist Progress Note ---
Date of Service July 12, 2019 Assessment & Plan (1) Hypoxia: Improving, She doesn't require oxygen at baseline. Possibly 2/2 mucous plugging vs shunt physiology from atelectasis. Cont pulmonary toilet with flutter valve and chest PT use. Spiriva/prednisone added. Outpatient PFTs when improved. (2) Acute bronchitis: Improved since admission. Likely viral but continue doxycycline. Cont supportive care with benzonatate, cough syrup, mucomyst and benadryl. Pulm recommending prednisone and Symbicort BID at this time. (3) Peripheral eosinophilia: IgE level is pending. (4) Hypothyroidism: cont Synthroid per home regimen. (5) DVT prophylaxis: Lovenox Full Code Dispo-to home when medically stable and off oxygen. She lives at home with her . Selina Rios DO [facility] Hospitalist Subjective Reports feeling better today but still has hypoxia denies fevers or chills has been ambulating around the room without much difficulty but with oxygen Review of Systems Review of Systems: All systems reviewed & are unremarkable except as noted in HPI & below Physical Exam Physical Exam: CONSTITUTIONAL: WNWD, vitals as above, generally well- appearing EYES: normal conjunctivae, no scleral icterus ENT: MMM RESPIRATORY: Clear to auscultation bilaterally, no crackles rales or wheezes, normal respiratory effort CARDIOVASCULAR: regular rate and rhythm, S1 and 2 heard without murmurs, gallops or rubs, no JVD, no peripheral edema GASTROINTESTINAL: soft, nontender, nondistended MUSCULOSKELETAL: strength 5/5 throughout, head is normocephalic and atraumatic SKIN: warm and dry NEUROLOGIC: CN 2-12 grossly intact, normal cognition, normal speech, no gross focal deficit PSYCHIATRIC: alert cooperative and oriented to person, place and time. Results & Data Vital Signs (Past 12 Hours) Vital Signs Temp Pulse Resp BP Pulse Ox 07/12/19 07:25 36.6 C 59 L 16 114/63 94 07/12/19 07:24 59 L 18 94 Medications Administered Current Inpatient Medications Acetaminophen (Tylenol) 325 mg PO Q6H PRN PRN Reason: Pain or Fever Stop: 08/05/19 21:14 Aspirin (Ecotrin) 325 mg PO DAILY PRN PRN Reason: Pain Stop: 08/05/19 21:14 Benzonatate (Tessalon Perle) 100 mg PO TID [facility] Stop: 08/08/19 13:59 Last Admin: 07/12/19 13:47 Dose: 100 mg Documented by: Budesonide/Formoterol Fumarate (Symbicort 80mcg/4.5mcg) 2 puffs INH BID [facility] Stop: 08/09/19 20:59 Last Admin: 07/12/19 08:09 Dose: 2 puffs Documented by: Diphenhydramine HCl (Benadryl Capsule) 25 mg PO Q12 [facility] Stop: 08/08/19 10:59 Last Admin: 07/12/19 08:09 Dose: 25 mg Documented by: Doxycycline Hyclate (Vibramycin) 100 mg PO BID [facility]; Protocol Stop: 07/17/19 10:44 Last Admin: 07/12/19 08:09 Dose: 100 mg Documented by: Enoxaparin Sodium (Lovenox) 40 mg SQ QAM [facility] Stop: 08/07/19 08:59 Last Admin: 07/12/19 08:09 Dose: Not Given Documented by: Famotidine (Pepcid) 20 mg PO BID PRN PRN Reason: heartburn Stop: 08/09/19 09:59 Guaifenesin/Dextromethorphan (Robitussin Cough-Chest Dm) 5 ml PO Q6 [facility] Stop: 08/08/19 10:59 Last Admin: 07/12/19 11:46 Dose: 5 ml Documented by: Ipratropium [place] (Atrovent 0.02% 0.5mg/2.5ml) 0.5 mg INH Q8R PRN PRN Reason: Shortness Of Breath Or Wheezing Stop: 08/05/19 21:14 Last Admin: 07/12/19 07:24 Dose: 0.5 mg Documented by: Levalbuterol HCl (Xopenex 1.25mg/0.5ml Neb) 1.25 mg INH Q2H PRN PRN Reason: Shortness Of Breath Or Wheezing Stop: 08/05/19 21:14 Last Admin: 07/12/19 07:24 Dose: 1.25 mg Documented by: Levothyroxine Sodium (Synthroid) 25 mcg PO DAILYBB [facility] Stop: 08/06/19 06:29 Last Admin: 07/12/19 06:04 Dose: 25 mcg Documented by: Menthol (Nice) 1 ochoa BUCCAL PRN PRN PRN Reason: Cough Stop: 08/06/19 08:33 Last Admin: 07/08/19 23:32 Dose: 1 ochoa Documented by: Multivitamins (Multivitamin Tab) 1 tab PO [facility] Stop: 08/06/19 08:59 Last Admin: 07/12/19 08:09 Dose: 1 tab Documented by: Nitroglycerin (Nitrostat) 0.4 mg SL UD PRN PRN Reason: Chest Pain Stop: 08/05/19 21:14 Ondansetron HCl (Zofran) 4 mg IV Q6H PRN PRN Reason: Nausea Stop: 08/05/19 21:14 Phenol (Chloraseptic 1.4% [place]) 1 sprays MT Q12H PRN PRN Reason: Sore Throat Stop: 08/06/19 18:44 Polyethylene Glycol (Miralax Powder Packet) 17 gm PO DAILY PRN PRN Reason: Constipation Stop: 08/05/19 21:14 Prednisone (Prednisone) 30 mg PO DAILY [facility] Stop: 08/09/19 13:59 Last Admin: 07/12/19 08:09 Dose: 30 mg Documented by: Vitamin D (Vitamin D3) 2,000 units PO [facility] Stop: 08/06/19 08:59 Last Admin: 07/12/19 08:08 Dose: 2,000 units Documented by:
[2019-07-12] MEDS ORDERED: GUAIFENESIN/DEXTROM SYRUP 100MG/10MG 5ML UDC PO PRN (21:13)
[2019-07-12] MEDS ORDERED: BENZONATATE 100 MG CAPSULE PO PRN (21:13)
[2019-07-13] MEDS: LEVOTHYROXINE SODIUM 25 MCG TABLET PO SCH (05:30)
[2019-07-13] MEDS: CHOLECALCIFEROL 1,000 UNITS TAB PO SCH (07:56)
[2019-07-13] MEDS: predniSONE 10 MG TABLET PO SCH (07:56)
[2019-07-13] MEDS: MULTIVITAMIN TAB PO SCH (07:56)
[2019-07-13] MEDS: BUDESONIDE/FORMOTEROL FUMARATE 80/4.5 60 PUFFS/INHALER INH SCH (07:56)
[2019-07-13] MEDS: DOXYCYCLINE HYCLATE 100 MG CAP PO SCH (07:56)
[2019-07-13] MEDS: ENOXAPARIN INJ 40 MG/0.4 ML SYR SQ SCH (07:58)
[2019-07-13] MEDS ORDERED: OPTIRAY 320 125ml IV PRN (10:01)
--- NOTE | 2019-07-13 10:31 | CT Scan Report ---
CT ANGIOGRAPHY OF THE CHEST, PULMONARY EMBOLUS PROTOCOL CLINICAL HISTORY: Shortness of breath. Evaluate for pulmonary embolus. COMPARISON STUDY: Chest CT July 09, 2019. TECHNIQUE: Following IV administration of 120 mL of Optiray-320, helical axial images of the chest we re obtained utilizing the pulmonary embolus protocol. Maximal intensity projections and sagittal and coronal reformats were viewed on an independent 3D workstation. IV contrast was administered withou t complication. Automated exposure control was utilized for the study. A dose lowering technique wa s utilized adhering to the principles of ALARA. CT DOSE: 220.71 mGy.cm FINDINGS: No pulmonary emboli are identified although the segmental and subsegmental vessels are sub optimally assessed due to respiratory motion. The heart is mildly enlarged. There is no thoracic aort ic dissection. No enlarged thoracic lymph nodes are noted. A small right pleural effusion has decreas ed in size since CT of July 09, 2019. Right middle lobe and right lower lobe opacity favors atele ctasis. There are extensive secretions within bilateral lower lobe segmental bronchi. There is no pne umothorax. Bony thorax is unremarkable. A left breast nodule is unchanged since chest CT of December 14. Therefore, this is benign. Previously described right hepatic lobe lesion is not well visualized on this exam due to motion artifact. IMPRESSION: 1. No pulmonary emboli identified although segmental and subsegmental pulmonary arteries suboptimally assessed due to respiratory motion. 2. Extensive secretions within the bilateral lower lobe bronchi. 3. Right middle lobe and right lower lobe opacity which favors atelectasis. Near-complete resolution of the right pleural effusion. ACT 112: Negative or not required by law. Electronically signed by: Kumar Fernández M.D. 07/13/2019 10:30 AM
--- NOTE | 2019-07-13 14:12 | Discharge Summary ---
Date of Service July 13, 2019 Admission HPI Per Admitting Provider HISTORY OF PRESENT ILLNESS: This is an 84-year-old female with past medical history significant for hyperlipidemia, hypothyroidism, osteoporosis, generalized osteoarthritis, GERD, who presents with cough and shortness of breath going on since Thanks. She saw her family doctor on 06/16/2019 and gave her Z-VIOLETA and inhaler and steroid, but she did not take the steroid, but she took the Z-VIOLETA, but the symptoms did not improve. She is getting progressively short of breath and lot of cough bringing up light yellow-colored phlegm, but denies any fever. Mild chest discomfort from the cough and mild discomfort in her throat because of cough. The patient, when she came into the ER, she was saturating 85% to 86% on room air. On nasal cannula, she was saturating 92%. Currently, she is feeling better. She received steroids and nebs in the ER. Denies any chest pain. No headache, no dizziness, no blurred visions, no earache, no runny nose. No nausea, no vomiting, no abdominal pain. Appetite is not that great. No dysphagia or odynophagia. No diarrhea, no constipation, no blood in the stool or black stools. No hematuria or burning micturition. No swelling in the legs, no rash. Lives with her . Ambulates without any support. Admission Exam Per Admitting Provider PHYSICAL EXAMINATION: GENERAL: The patient is alert and oriented, not in acute distress. VITAL SIGNS: Temperature 36.6, pulse 70, respiratory rate 20, blood pressure 128/50, oxygen 85% on room air, 92% on nasal cannula. HEENT: No pallor, no icterus. Pupils equal, round, reactive to light. NECK: No JVD, no neck masses, no carotid bruits. CARDIOVASCULAR: S1, S2 heard, regular rate and rhythm, no murmur, no gallop. RESPIRATORY SYSTEM: Normal AP diameter. No accessory muscle use. Bilateral rhonchi and wheezing heard. ABDOMEN: Soft, bowel sounds present, nontender. No distention. CENTRAL NERVOUS SYSTEM: Cranial nerves II-XII grossly nonfocal. EXTREMITIES: No edema, no erythema. Principal Diagnosis Acute tracheobronchitis Hypoxia 2/2 Atelectasis Peripheral eosinophilia Discharge Exam CONSTITUTIONAL: WNWD, vitals as above, generally well-appearing EYES: normal conjunctivae, no scleral icterus ENT: MMM RESPIRATORY: Clear to auscultation bilaterally, no crackles rales or wheezes, normal respiratory effort CARDIOVASCULAR: regular rate and rhythm, S1 and 2 heard without murmurs, gallops or rubs, no JVD, no peripheral edema GASTROINTESTINAL: soft, nontender, nondistended MUSCULOSKELETAL: strength 5/5 throughout, head is normocephalic and atraumatic SKIN: warm and dry NEUROLOGIC: CN 2-12 grossly intact, normal cognition, normal speech, no gross focal deficit PSYCHIATRIC: alert cooperative and oriented to person, place and time. Discharge Data Allergies Allergy/AdvReac Type Severity Reaction Status Date / Time codeine AdvReac Unknown NAUSEA Verified 07/06/19 18:00 Consultations 07/06/19 19:45 ED Decision to Admit Stat 07/06/19 21:15 Consult Case Management - Discharge Planning Routine 07/09/19 08:04 Consult Pulmonology Routine Ordered Studies 07/09/19 11:03 CT chest wo con Urgent 07/13/19 08:48 CT angio chest PE protocol Routine Hospital Course (1) Tracheobronchitis: (2) Hypoxia: (3) Peripheral eosinophilia: (4) Hypothyroidism: (5) Atelectasis: The patient is an 84-year-old female who presented with cough and shortness of breath that of been ongoing for approximately 3-4 weeks who had failed outpatient azithromycin therapy. She had progressive shortness of breath and productive cough of yellow phlegm and was hypoxic oxygenating 85 to 86% on room air in the ER. Chest x-ray revealed no evidence of pneumonia and she was admitted to the hospitalist service and placed on IV steroids, scheduled ne bulizer therapy and doxycycline. Pulmonary was consulted and placed her on Mucomyst, cough suppressants and diphenhydramine. A CT of the chest was ordered without contrast and revealed trace pleural effusions with multifocal mucous plugging greatest within the lung bases. Additionally there were linear right greater than left base bibasilar consolidative opacities suggestive of atelectasis. She was diagnosed with tracheobronchitis. She remained hypoxic and a short course of prednisone was added. She continued to stay stable with some improvement, however, at time of discharge she was still requiring 2 L of oxygen continuously. This was felt to be a temporary need and she was sent home in stable condition with this to continue in the short-term. She will follow-up with [facility] pulmonology clinic next week for hospital follow-up. At that time pulmonary function tests will be ordered. At time of discharge she was mentating ambulating at baseline and tolerating p.o. She was hemodynamically stable and afebrile and was asymptomatic with clear lungs auscultation on physical exam. There was an incidental finding of a small breast mass that was seen on the CT scan, which is well known to her. She has had frequent mammograms for the past 40 years to follow this mass, which is stable. She recently had a mammogram in October 2018 which also noted this ante rior left breast oval mass. Total Time Total Time Spent Total Time Spent (In Minutes): 60 Total Time Includes: Examination of the Patient, Discharge Planning, Medication Reconciliation, Communication With Other Providers and Other (arranged outpatient followup) Discharge Plan Discharge Items Patient Disposition: Home - Self-Care Reason For Visit: SOB,COUGH Discharge Diagnosis: Acute bronchitis Hypoxia 2/2 Atelectasis Peripheral eosinophilia Condition on Discharge: Good Activity: Resume your previous activity Non-emergency contact: Primary Care Provider Call non-emergency contact if: you have any medication questions Follow-up/Referrals: Ryann Banuelos, [Primary Care Provider] - Diet: Regular Addtl Attending Provider Instructions: Please take all medications as instructed on discharge list below. You will need only one more day of prednisone to complete the course (30mg to take on /). Please continue using your flutter valve (green breathing tool) 3-4 times per day. You are being sent home on oxygen to wear continuously until you completely r ecover from this illness. You will be contacted by the [facility] Pulmonology office regarding a follow-up appointment in their clinic some time next week. This will be to schedule your pulmonary function tests (PFTs) and to ensure you are doing well post-discharge. You also have a pending lab test (IgE) which has not returned prior to discharge. The results of this may be reviewed at this time. As we discussed, there was a left ovoid breast mass seen on your recent CT scan that should be correlated with your recent mammogram to ensure stability. Please discuss this further with your primary care physician. You have the following appointment scheduled following hospital discharge: 07/18/2019 11:00 AM Ryann Banuelos DO [facility] It was a pleasure taking care of you! Please call if you have any questions or problems. You can reach a [facility] hospitalist on duty at [facility] 24 hours a day by calling [phone]. Take care of yourself. Selina Rios DO [facility] Hospitalist Pending Studies at Discharge: Yes Studies:: IgE level Stand-Alone Forms: My [facility], Smoking Cessation Medications and DC Order Prescriptions: New prednisone 10 mg tablet 30 mg PO DAILY 1 Days Qty: 3 RF: 0 Continued Unisom (doxylamine) 25 mg Tablet 25 mg PO HS PRN (Reason: Sleep) Qty: 0 RF: 0 multivitamin Tablet 1 tab PO QAM RF: 0 aspirin [Shantelle Aspirin] 325 mg Tablet 650 mg PO DAILY PRN (Reason: Pain) RF: 0 levothyroxine 25 mcg tablet 25 mcg PO QAM RF: 0 albuterol sulfate 90 mcg/actuation HFA aerosol inhaler 2 puff INHALATION QID RF: 0 cholecalciferol (vitamin D3) [Vitamin D3] 2,000 unit Tablet 2,000 unit PO QAM RF: 0 Discharge Orders: Discharge Order (Routine); Ordered 07/13/19 Ordered By: Selina Rios Admission Data Admit Date/Time: 07/06/19 20:36 Attending Provider: Selina Rios Admit Provider: Alfred Tovar Primary Care Provider: Ryann Banuelos Other Providers: Alfred Tovar ; David Art
[2019-07-14] MEDS ORDERED: predniSONE 10 MG TABLET PO SCH (09:00)
== END 2019-07-13 17:17 | disposition home or self-care (01) | DRG 202 ==
LOC: ED 16:24 → 2N 20:36 → SUATTDRO 20:36 → 2N 21:12